=== PATIENT | male | born 1990 | race Caucasian/White ===

== ENCOUNTER 2023-01-21 15:51 | Outpatient (OUT) | payer BC, SELFPAY ==
--- NOTE | 2023-01-21 15:59 | US_ITS ---
The [address] [address] Patient Name: TANGELA MORILLO MRN: [id number] date: 1990 Sex: M Assigned Patient Location: Current Patient Location: Accession/Order Number: [id number] Exam Date: 01/21/2023 16:40 Report Date: 01/22/2023 12:20 At the request of: JAQUI GARVIN Procedure: US scrotum EXAMINATION: US scrotum HISTORY: Testicular Pain N50.819 , right testicular pain and swelling for one month COMPARISON: No relevant comparison available. TECHNIQUE: High-resolution sonographic imaging of the scrotum and contents was performed. FINDINGS: RIGHT: TESTICLE: Homogeneous echotexture. No visible mass. Color Doppler flow is present. Spectral Doppler demonstrates normal arterial waveform and flow, 4/2 cm/s (PSV/EDV), and normal venous wave flow averaging 1 cm/s. EPIDIDYMIS: Normal size and echogenicity. OTHER: Slightly complex hydrocele. Abnormal skin thickening, 7 mm. LEFT: TESTICLE: Homogeneous echotexture. No visible mass. Color Doppler flow is present. Spectral Doppler demonstrates arterial waveform and flow, 4/2 cm/s (PSV/EDV), and normal venous flow averaging 1 cm/s. EPIDIDYMIS: Normal size and echogenicity. OTHER: None. US/US scrotum IMPRESSION: 1. Large right hydrocele of uncertain etiology. 2. Abnormal scrotal skin thickening on right side of uncertain etiology. 3. No increased vascularity of the testicle or epididymis to suggest epididymitis or orchitis. Electronically authenticated by: VENKAT DE LA ROSA Date: 01/22/2023 12:20
== END 2023-01-21 15:52 | disposition home or self-care (01) ==
LOC: US 15:55
PROVIDERS: PCP Nurse Practitioner; Visit Provider Nurse Practitioner
DX: N50.819 Testicular pain, unspecified (principal); N50.89 Other specified disorders of the male genital organs; N43.3 Hydrocele, unspecified
CPT/HCPCS: 76870

== ENCOUNTER 2023-03-18 13:36 | Outpatient (OUT) | payer BC, SELFPAY ==
--- OUTSIDE RECORDS SUMMARY | 2023-03-18 13:40 | XMS_ITS | CCD ---
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 Name Role Phone FAROOQ ., DR ALISON Grace Primary Care Unavailable MARKER ., DR WEINER Admitting Unavailable MARKER ., DR WEINER Attending Unavailable MARKER ., DR WEINER Consulting Unavailable PAULY ., FLEX Consulting Unavailable FAROOQ ., DR ALISON Grace Admitting Unavailable FAROOQ ., DR ALISON Grace Attending Unavailable FAROOQ ., DR ALISON Grace Primary Care Unavailable FAROOQ ., DR ALISON Grace Admitting Unavailable FAROOQ ., DR ALISON Grace Attending Unavailable FAROOQ ., DR ALISON Grace Primary Care Unavailable FAROOQ ., DR ALISON Grace Consulting Unavailable FAROOQ ., DR ALISON Grace Primary Care Unavailable DIAB ., CL[place] Admitting Unavailable DIAB ., [place] Attending Unavailable PADMINI HARVEY Consulting Unavailable DIAB ., [place] Consulting Unavailable FAROOQ ., DR ALISON Grace Primary Care Unavailable DOV SPRING Admitting Unavailable DOV SPRING Attending Unavailable DOV SPRING Consulting Unavailable FAROOQ ., DR ALISON Grace Primary Care Unavailable DIAB ., [place] Admitting Unavailable DIAB ., [place] Attending Unavailable GRECHNY .TIARA Consulting Unavailabl e DIAB ., [place] Consulting Unavailable Sonia Weiss Attending UnavailSonia Harp Admitting Unavailhelena e Alison Farooq Primary Care Unavailable Vianey Lynn Primary Care Physician [phone] Vianey Lynn Attending Unavailable Vianey Lynn Admitting Unavailable My Colon Attending Unavailable My Colon Admitting Unavailable My Colon Attending Unavailable Vianey Lynn Referring Unavailable My Colon Attending Unavailable Vianey Lynn Attending Unavailable Medications Current Medications Medication Drug Class(es) Dates Sig (Normalized) Sig (Original) bisoprolol fumarate 10 mg / hydroCHLOROthiazide 6.25 mg oral tablet (2 sources) Thiazide Diuretic, beta-Adrenergic Maximino Start: 01-20-2023 take 1 tablet by mouth once daily bisoprolol-hydro chlorothiazide 10 mg-6.25 mg Tab 1 tab(s), Oral, Daily, 90 tab(s), Refill(s) 1, [facility]/pharmacy #[id number], 170.4, cm, 01/20/23 15:13:00 EDT, Height/Length Dosing, 89.7, kg, 01/20/23 15:13:00 EDT, Weight Dosing Start Date: 01/20/23 Status: Ordered omeprazole 40 mg delayed release oral capsule (2 sources) Proton Pump Inhibitor Start: 01-20-2023 take 1 capsule by mouth once daily omeprazole 40 mg Cap-DR 40 mg = 1 cap(s), Oral, Daily, # 90 cap(s), Refills(s) 0, Pharmacy: [facility]/pharmacy #[id number], 170.4, cm, 01/20/23 15:13:00 EDT, Height/Length Dosing, 89.7, kg, 01/20/23 15:13:00 EDT, Weight Dosing Start Date: 01/20/23 Status: Ordered Problems Problem Classification Problem Date Documented Date Episodic/Chronic Essential hypertension (3 sources) Essential (primary) hypertension; Translations: [Essential hypertension] Onset: 04-20-2022 01-20-2023 Chronic Genitourinary symptoms and ill-defined conditions (4 sources) Dysuria; Translations: [Microscopic hematuria] Onset: 02-25-2023 01-20-2023 Episodic Headache; including migraine (4 sources) Headache; including migraine; Translations: [HEADACHE UNSPECIFIED] Onset: 04-14-2022 Hypertension with complications and secondary hypertension (2 sources) Hypertensive urgency; Translations: [HYPERTENSIVE URGENCY] Onset: 04-16-2022 Chronic Other male genital disorders (2 sources) Pain in testicle 01-20-2023 Episodic Other male genital disorders (2 sources) Swelling of testicle 01-20-2023 Episodic Other male genital disorders (1 source) Hydrocele of testis; Translations: [Hydrocele, unspecified] Onset: 02-25-2023 Episodic Other male genital disorders (2 sources) Disorder of male genital organ 01-22-2023 Episodic Other upper respiratory disease (5 sources) Epistaxis; Translations: [EPISTAXIS] Onset: 04-16-2022 Episodic Substance-related disorders (3 sources) Nicotine dependence, cigarettes, uncomplicated; Translations: [Smoker] Onset: 04-16-2022 11-28-2015 Chronic Comment on above: Added secondary to d ocumentation in Social History. Results Test Name Value Interpretation Reference Range Facility [facility] 03-09-2023 Forms [id number] .00TIFF Normal [facility] [place] 02-26-2023 Screens [id number]# 1.00TIFF Normal [facility] Screens [id number]# 1.00TIFF Normal [facility] Ambulatory Visit Summaryon 1 04-27-2022 Ambulatory Visit Summary TANGELA MORILLO :1990 Visit Date:02/25/2023 Ambulatory Visit Instructions Your Diagnosis Hydrocele Microscopic hematuria Tests Performed Urnls Dip Stick Auto w/o Microscopy POC 91577 Your Care Team Attending Physician - My Colon MD Primary Care Physician - Vianey Hernandez Referring Physician - Vianey Hernandez This Is Your Medications List Contact prescribing physician if questions or concerns bisoprolol-hydrochlor othiazide (bisoprolol-hydrochlo rothiazide 10 mg-6.25 mg Tab) omeprazole (omeprazole 40 mg Cap-DR) Procedures Performed Hernia (1993). Discharge Vitals Heart Rate (Peripheral) 75 Blood Pressure 140/96 Height 67 in Height 170.4 cm Weight 197.34 lb Weight 89.7 kg BMI 30.89 What to do next You Need to Schedule the Following Appointments Follow Up with Isaiah LEPE, My Gonzalez, URL, URO When: Where: Medications What How Much When Why Instructions Unchanged bisoprolol-hydrochlor othiazide (bisoprolol-hydrochlo rothiazide 10 mg-6.25 mg Tab) 1 Tablets By Mouth Every day Testicular swelling, right Testicular pain Dysuria BMI 30.0-30.9,adult Vaping nicotine dependence, tobacco product Contact prescribing physician if questions or concerns Unchanged omeprazole (omeprazole 40 mg Cap-DR) 1 Capsules By Mouth Every day Testicular swelling, right Testicular pain Dysuria Essential hypertension BMI 30.0-30.9,adult Vaping nicotine dependence, tobacco product Contact prescribing physician if questions or concerns Test Results Urnls Dip Stick Auto w/o Microscopy POC 42956 (02/25/2023) Bilirubin Urine Dipstick - 1+ Small Blood Urine Dipstick - 1+ Small Glucose Urine Dipstick - Negative Ketones Urine Dipstick - Trace - 5 mg/dl Leukocytes Urine Dipstick - Negative Nitrite Urine Dipstick - Negative Protein Urine Dipstick - 1+ (30 mg/dl) Specific [place] Urine Dipstick - >=1.030 Urine Appearance Urine Dipstick - Clear Urine Color Urine Dipstick - Yellow Urobilinogen Urine Dipstick - Normal 0.2-1 EU/dl pH Urine Dipstick - 5.5 Allergies No Known Allergies Problems Ongoing - Any problem that you are currently receiving treatment for. Dysuria Essential hypertension Hydrocele Hydrocele, right Microscopic hematuria Smoker Testicular pain Testicular swelling, right Patient Survey You may receive a survey via text or e-mail asking about your office visit. Please share your experience with us by completing your survey. We appreciate your feedback and thank you for choosing us for your care. Education Materials Hydrocele, Adult A hydrocele is a collection of fluid in the loose pouch of skin that holds the testicles (scrotum). It can occur in one or both testicles. This may happen because: ? The amount of fluid produced in the scrotum is not absorbed by the rest of the body. ? Fluid from the abdomen fills the scrotum. Normally, the testicles develop in the abdomen and then drop into the scrotum before . The tube that the testicles travel through usually closes after the testicles drop. If the tube does not close, fluid from the abdomen can fill the scrotum. This is not very common in adults. What are the causes? A hydrocele may be caused by: ? An injury to the scrotum. ? An infection. ? Decreased blood flow to the scrotum. ? Twisting of a testicle (testicular torsion). ? A defect. ? A tumor or cancer of the testicle. Sometimes, the cause is not known. What are the signs or symptoms? A hydrocele feels like a water-filled balloon. It may also feel heavy. Other symptoms include: ? Swelling of the scrotum. The swelling may decrease when you lie down. You may also notice more swelling at night than in the morning. This is called a communicating hydrocele, in which the fluid in the scrotum goes back into the abdominal cavity when the position of the scrotum changes. ? Swelling of the groin. ? Mild discomfort in the scrotum. ? Pain. This can develop if the hydrocele was caused by infection or twisting. The larger the hydrocele, the more likely you are to have pain. Swelling may also cause pain. How is this diagnosed? This condition may be diagnosed based on a physical exam and your medical history. You may also have tests, including: ? Imaging tests, such as an ultrasound. ? A transillumination test. This test takes place in a dark room where a light is placed on the skin of the scrotum. Clear liquid will not impede the light and the scrotum will be illuminated. This helps a health care provider distinguish a hydrocele from a tumor. ? Blood or urine tests. How is this treated? Most hydroceles go away on their own. If you have no discomfort or pain, your health care provider may suggest close monitoring of your condition until the condition goes away or symptoms develop. This is called watch and wait or watchful waiting. If treatment is needed, it m (more content not included)... Normal [facility] Insurance Correspondenceon 04-27-2022 Insurance Correspondence [id number] .00TIFF Normal [facility] Patient Educationon 02-26-20 23 Patient Education Urology Hydrocele, Adult A hydrocele is a collection of fluid in the loose pouch of skin that holds the testicles (scrotum). It can occur in one or both testicles. This may happen because: ? The amount of fluid produced in the scrotum is not absorbed by the rest of the body. ? Fluid from the abdomen fills the scrotum. Normally, the testicles develop in the abdomen and then drop into the scrotum before . The tube that the testicles travel through usually closes after the testicles drop. If the tube does not close, fluid from the abdomen can fill the scrotum. This is not very common in adults. What are the causes? A hydrocele may be caused by: ? An injury to the scrotum. ? An infection. ? Decreased blood flow to the scrotum. ? Twisting of a testicle (testicular torsion). ? A defect. ? A tumor or cancer of the testicle. Sometimes, the cause is not known. What are the signs or symptoms? A hydrocele feels like a water-filled balloon. It may also feel heavy. Other symptoms include: ? Swelling of the scrotum. The swelling may decrease when you lie down. You may also notice more swelling at night than in the morning. This is called a communicating hydrocele, in which the fluid in the scrotum goes back into the abdominal cavity when the position of the scrotum changes. ? Swelling of the groin. ? Mild discomfort in the scrotum. ? Pain. This can develop if the hydrocele was caused by infection or twisting. The larger the hydrocele, the more likely you are to have pain. Swelling may also cause pain. How is this diagnosed? This condition may be diagnosed based on a physical exam and your medical history. You may also have tests, including: ? Imaging tests, such as an ultrasound. ? A transillumination test. This test takes place in a dark room where a light is placed on the skin of the scrotum. Clear liquid will not impede the light and the scrotum will be illuminated. This helps a health care provider distinguish a hydrocele from a tumor. ? Blood or urine tests. How is this treated? Most hydroceles go away on their own. If you have no discomfort or pain, your health care provider may suggest close monitoring of your condition until the condition goes away or symptoms develop. This is called watch and wait or watchful waiting. If treatment is needed, it may include: ? Treating an underlying condition. This may include taking an antibiotic medicine to treat an infection. ? Having surgery to stop fluid from collecting in the scrotum. ? Having surgery to drain the fluid. Surgery may include: ? Hydrocelectomy. For this procedure, an incision is made in the scrotum to remove the fluid. ? Needle aspiration. A needle is used to drain fluid. However, the fluid buildup will come back quickly and may lead to an infection of the scrotum. This is rarely done. Follow these instructions at home: Medicines ? Take cidv-fwf-yjgsvlq and prescription medicines only as told by your health care provider. ? If you were prescribed an antibiotic medicine, take it as told by your health care provider. Do not stop taking the antibiotic even if you start to feel better. General instructions ? Watch the hydrocele for any changes. ? Keep all follow-up visits. This is important. Contact a health care provider if: ? You notice any changes in the hydrocele. ? The swelling in your scrotum or groin gets worse. ? The hydrocele becomes red, firm, painful, or tender to the touch. ? You have a fever. Get help right away if you: ? Develop a lot of pain or your pain becomes worse. ? Have chills. ? Have a high fever. Summary ? A hydrocele is a collection of fluid in the loose pouch of skin that holds the testicles (scrotum). ? A hydrocele can cause swelling, discomfort, and pain. ? In adults, the cause of a hydrocele may not be known. However, it is sometimes caused by an infection or the twisting of a testicle. ? Hydroceles often go away on their own. If a hydrocele causes pain, treating the underlying cause may be needed to ease the pain. This information is not intended to replace advice given to you by your health care provider. Make sure you discuss any questions you have with your health care provider. Document Revised: 10/30/2021 Document Reviewed: 10/30/2021 [employer] Patient Education ? 2022 [employer] [facility] Provider Letteron 02-25-2023 Provider Letter February 25, 2023 TANGELA MORILLO [address] [place] [address] [place] [address] : 1990 To Whom It May Concern, Please excuse above patient from work. Date of Illness: From: 03/24/23 To: 03/31/23 May Return to Work On: 04/01/23 Restrictions: _ Comments: _ Sincerely, Dr. My Colon MD [facility] [address] [place] [address], [address] [place] [address] Normal [facility] Urinalysison 02-25-2023 Bacteria LM Ql (Urine sed) TRACE Normal Trace [facility] Comment on above: Performed By: #### 1 [id number] ####[facility] [address] [place] [address] Bilirubin Ql (U) 1+ Abnormal Negative [facility] Comment on above: Performed By: #### 1 [id number] ####[facility] [address] [place] [address] Clarity (U) TURBID Abnormal Clear [facility] Comment on above: Performed By: #### 1 [id number] ####[address] [address] Color (U) YELLOW Normal Yellow [facility] Comment on above: Performed By: #### 1 [id number] ####[facility] [address] [place] [address] Crystals LM Ql (Urine sed) Present Normal [facility] Comment on above: Performed By: #### 1 [id number] ####[facility] [address] [place] [address] Epithelial cells.squamous LM.HPF (Urine sed) [#/Area] 0-2 Normal 0-2 [facility] Comment on above: Performed By: #### 1 [id number] ####[facility] [address] [place] [address] Glucose Test strip (U) [Mass/Vol] Negative Normal Negative [facility] Comment on above: Performed By: #### 1 [id number] ####[facility] [address] [place] [address] Hemoglobin Ql (U) 1+ Abnormal Negative [facility] Comment on above: Performed By: #### 1 [id number] ####[facility] [address] [place] [address] Ketones (U) [Mass/Vol] TRACE Abnormal Negative [facility] Comment on above: Performed By: #### 1 [id number] ####[address] [address] [place].plasma/Lithiu m.RBC (Bld) [Mass ratio] 0-3 Normal 0-3 [facility] Comment on above: Performed By: #### 1 [id number] ####[address] [address] Nitrite Ql (U) Negative Normal Negative [facility] Comment on above: Performed By: #### 1 [id number] ####[place] [id number] pH (U) 5.5 [pH] Invalid Interpretation Code 5.0-9.0 [facility] Comment on above: Performed By: #### 1 [id number] ####[address] [address] Protein (U) [Mass/Vol] TRACE Abnormal Negative [facility] Comment on above: Performed By: #### 1 [id number] ####[place] [id number] Specific gravity (U) [Rel density] >=1.030 Invalid Interpretation Code 1.005-1.030 [facility] Comment on above: Performed By: #### 1 [id number] ####[address] [address] Type of Urine collection method Random Urine Normal [facility] Comment on above: Performed By: #### 1 [id number] ####[address] [address] Urobilinogen Qn (U) 0.2 {Donna'U}/dL Normal 0.0-1.0 [facility] Comment on above: Performed By: #### 1 [id number] ####[address] [address] WBC Auto Ql (U) Negative Normal Negative [facility] Comment on above: Performed By: #### 1 [id number] ####[address] [address] WBC LM.HPF (Urine sed) [#/Area] 0-5 Normal 0-5 [facility] Comment on above: Performed By: #### 1 [id number] ####[facility] [address] [address] Urology Office/Clinic Noteon 02-25-2023 Urology Office/Clinic Note Chief Complaint scrotal swelling HPI Staff 33 year old male new patient 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 Patient states that the swelling just keeps getting larger Dysuria: no Incomplete bladder emptying: no Hematuria: no Frequency: no Urgency: no Nocturia:1x Stream:good stream Leaking: no Post void dripping: no Wearing pads/ Depends: no Urge incontinence: no Stress incontinence: no Incontinence without Sensory Awareness: no Abdominal pain: no Flank pain: no Sexual complaints: no History of Present Illness Tests reviewed: Reviewed UA and scrotal US, external records I have reviewed the previous health record information and history for this patient from external provider. I have reviewed and verified the staff HPI to be accurate for this encounter. There have been no associated fever, chills, flank pain, or blood in the urine. Denies any urinary infections . Review of Systems PHQ Score Initial Depression Screen Score: 0 SCORE ROS - Provider Constitutional: denies weight loss, denies hot flashes. Eyes: denies eye problems. Gastrointestinal: denies nausea, denies vomiting. Cardiovascular: denies chest pain or angina. Integumentary: no dryness Musculoskeletal: denies musculoskeletal symptoms. ENMT: denies otolaryngeal symptoms. Respiratory: no shortness of breath. Heme/Lymph: denies easy bleeding tendency, denies easy bruising tendency. Psychiatric: no confusion, no anxiety. Genitourinary: See HPI. Physical Exam Vitals & Measurements HR: 75(Peripheral) BP: 140/96 HT: 67 in HT: 170.4 cm WT: 89.7 kg WT: 197.34 lb BMI: 30.89 General Appearance: alert, no distress, well nourished, well developed male. Head: normocephalic . Eyes: normal orbit and globe. ENMT: normal examination of external ears. Chest: symmetric chest rise, respirations non labored. Cardiovascular: regular rate and rhythm. Abdomen: soft, non distended, no tenderness, no inguinal hernias palpable, BL inguinal scars present Genitourinary: small-mod right hydrocele extending partially into left hemiscrotum, mildly tender. BL descended testes palpable, nontender, no masses. No scrotal erythema Flank Pain: none. Bladder: nonpalpable. Penis: normal shaft, normal glans, uncircumcised Skin: warm, dry, no bruising. Psychiatric: cooperative, affect appropriate for age, normal judgement, euthymic mood. Assessment/Plan 33 yo male referred by Vianey Lynn for testicular pain, swelling and hydrocele on right side. New to our office. Hx of HTN. Denies diabetes, stroke, or [place]. No blood thinners. IPSS 5 MEGHA 3. Not sexually active. Portions of this record may have been created with voice recognition artificial intelligence software, specifically [employer], [employer] and or [employer]. Substitutions may have occurred due to the inherent limitations of voice recognition and artificial intelligence software. 1. Hydrocele (N43.3: Hydrocele, unspecified) Hx of bilateral inguinal hernia repair when he was 4 years old. Denies hx of undescended testicle. No other surgeries or issues. CC: R testicular pain and swelling started about 2 months ago after he took his son to a children's indoor playground, denies any known trauma. Pt states the swelling keeps getting worse. Does note pain worsens after being on his feet all day. Does not notice when he is relaxing. Scrotal US 01/22/23 large, right sided slightly complex hydrocele. Abnormal skin thickening, 7 mm. PE: complex right sided hydrocele present, no recurrence of hernia noted Discussed possible etiologies and mgmt options including conservative measures, aspiration (high risk of recurrence, low success with complex collections) and right hydrocelectomy. Pt states he wishes to treat hydrocele surgically, declined trial of conservative management given bother and desire for definitive treatment. Plan: -Ibuprofen 600-800mg every 6 hours prn for pain -Scrotal support -Schedule Right hydrocelectomy under general anesthesia. He understood the risks of the procedure to include but not limited to bleeding, pain, infection, injury to surrounding structures, recurrence of hydrocele, hematoma, injury to the testicle, epididymis and spermatic cord structures, persistent pain, loss of testicular function, need for orchiectomy, and the need for further procedures. 2. Microscopic hematuria (R31.29: Other microscopic hematuria) UA today small blood. Denies gross hematuria or hx of UTIs. Current vape user. Only risk factor. States cancer runs in his family, type(s) unknown Asymptomatic microscopic hematuria: > 3 RBCs/HPF in absence of obvious benign cause, such as infection, me (more content not included)... Normal [facility] Comment on above: Result Comment: Elec tronically Signed By: My Colon MD\.br\Date and Time Signed: 02/25/23 12:27 EST\.br\Electronically Co-Signed By: Odessa Sky\.br\Date and Time Co-Signed: 02/25/23 11:15 EST Physician Referralon 023 Physician Referral [id number]# 1.00TIFF [facility] Chlamydia/Gonococcus, NAAon 01-23-2023 C. trachomatis rRNA HERB+probe Ql (Unsp spec) Negative Invalid Interpretation Code Negative [facility] Comment on above: Performed By: #### 1 [id number], [id number] ####[facility] [address] [place] [address] N. gonorrhoeae rRNA HERB+probe Ql (Unsp spec) Negative Invalid Interpretation Code Negative [facility] Comment on above: Result Comment: [facility]f ormed at: =[facility] [address] [place], [place] [id number] MD Essence Lacey Performed By: #### 1 [id number], [id number] ####[facility] [address] [place] [address] RAD - Ultrasound Reporton RAD - Ultrasound Report [id number]#1. 00TIFF Normal [facility] Ambulatory Visit Summaryon 1 Ambulatory Visit Summary TANGELA MORILLO :1990 Visit Date:01/20/2023 Ambulatory Visit Instructions Your Diagnosis Testicular swelling, right Testicular pain BMI 30.0-30.9,adult Vaping nicotine dependence, tobacco product Your Care Team Attending Physician - Vianey Hernandez Primary Care Physician - Vianey Hernandez This Is Your Medications List bisoprolol-hydrochlor othiazide (bisoprolol-hydrochlo rothiazide 5 mg-6.25 mg Tab) Procedures Performed Hernia (1993). Discharge Vitals Blood Pressure 148/110 Height 170.4 cm Height 67 in Weight 89.7 kg Weight 197.34 lb BMI 30.89 Medications What How Much When Instructions Unchanged bisoprolol-hydrochlor othiazide (bisoprolol-hydrochlo rothiazide 5 mg-6.25 mg Tab) 1 Tablets By Mouth Every day Allergies No Known Allergies Problems Ongoing - Any problem that you are currently receiving treatment for. Essential hypertension Smoker Testicular pain Testicular swelling, right Patient Survey You may receive a survey via text or e-mail asking about your office visit. Please share your experience with us by completing your survey. We appreciate your feedback and thank you for choosing us for your care. Normal [facility] Family Medicine Office/Clini c Noteon 01-20-2023 Family Medicine Office/Clinic Note HPI Staff Tangela is a 33 year old male presenting to establish care Establish Care: History: Any previous diagnosis: HTN History of seeing any specialist: When was your last doctors visit: Last provider: Dr Farooq Any recent labs: Mar or Apr 2022 at [facility] Health Maintenance UTD: Acute: Current issues/complaints: needs refill on Bisoprolol-HCTZ Testicle pain: start one month ago right testicle is bigger than the left having sharp pain in right testicle with intermittent radiating pain up into pelvic area History of Present Illness pt presents today to establish. has c/o right testicular swelling and pain. needs BP med refill Review of Systems PHQ Score Initial Depression Screen Score: 0 ROS - Provider Constitutional: no fever, no chills, no sweats, no fatigue Respiratory: no shortness of breath, no cough, no orthopnea, no wheezing. Cardiovascular: no chest pain, no palpitations, no edema. Neurologic: no headache, no dizziness, no numbness, no weakness. : right testicle larger and painful Physical Exam Vitals & Measurements BP: 148/110 HT: 67 in HT: 170.4 cm WT: 89.7 kg WT: 197.34 lb BMI: 30.89 General: alert, no acute distress ENMT: oral mucosa moist, no pharyngeal erythema or exudate Cardiovascular: regular rate and rhythm, normal peripheral perfusion Respiratory: Lungs CTA, respirations non labored Extremities: no deformity, no trauma Neurological: oriented x 4, LOC appropriate for age, CN II-XII intact, motor strength equal & normal bilaterally, speech normal right testicular swelling Assessment/Plan 1. Testicular swelling, right (N50.89: Other specified disorders of the male genital organs) right testicle swollen and painful. u/a and std testing ordered. u/s ordered pt will have that done at [facility] Ordered: bisoprolol-hydrochlor othiazide, 1 tab(s), Oral, Daily, 90 tab(s), Refill(s) 1, [id number], 170.4, cm, 01/20/23 15:13:00 EDT, Height/Length Dosing, 89.7, kg, 01/20/23 15:13:00 EDT, Weight Dosing Chlamydia/Gonococcus, HERB UA With Cult Reflex 2. Testicular pain (N50.819: Testicular pain, unspecified) see above Ordered: bisoprolol-hydrochlor othiazide, 1 tab(s), Oral, Daily, 90 tab(s), Refill(s) 1, [id number], 170.4, cm, 01/20/23 15:13:00 EDT, Height/Length Dosing, 89.7, kg, 01/20/23 15:13:00 EDT, Weight Dosing Chlamydia/Gonococcus, HERB UA With Cult Reflex 3. Dysuria (R30.0: Dysuria) u/a with culture sent Ordered: bisoprolol-hydrochlor othiazide, 1 tab(s), Oral, Daily, 90 tab(s), Refill(s) 1, [id number], 170.4, cm, 01/20/23 15:13:00 EDT, Height/Length Dosing, 89.7, kg, 01/20/23 15:13:00 EDT, Weight Dosing Chlamydia/Gonococcus, HERB UA With Cult Reflex 4. Essential hypertension (I10: Essential (primary) hypertension) BP elevated in office today will increase bisprolol dose to 10mg 5. BMI 30.0-30.9,adult (Z68.30: Body mass index [BMI] 30.0-30.9, adult) BMI education complete Ordered: bisoprolol-hydrochlor othiazide, 1 tab(s), Oral, Daily, 90 tab(s), Refill(s) 1, [id number], 170.4, cm, 01/20/23 15:13:00 EDT, Height/Length Dosing, 89.7, kg, 01/20/23 15:13:00 EDT, Weight Dosing Chlamydia/Gonococcus, HERB UA With Cult Reflex 6. Vaping nicotine dependence, tobacco product (F17.290: Nicotine dependence, other tobacco product, uncomplicated) consider not vaping Ordered: bisoprolol-hydrochlor othiazide, 1 tab(s), Oral, Daily, 90 tab(s), Refill(s) 1, [id number], 170.4, cm, 01/20/23 15:13:00 EDT, Height/Length Dosing, 89.7, kg, 01/20/23 15:13:00 EDT, Weight Dosing Chlamydia/Gonococcus, HERB UA With Cult Reflex Follow-up No qualifying data available Problem List/Past Medical History Ongoing Dysuria Essential hypertension Smoker Testicular pain Testicular swelling, right Historical No qualifying data Procedure/Surgical History Hernia (1994). Medications bisoprolol-hydrochlor othiazide 10 mg-6.25 mg Tab, 1 tab(s), Oral, Daily, 1 refills Allergies No Known Allergies Social History Alcohol - Denies Alcohol Use, 11/28/2015 Substance Abuse - Denies Substance Abuse, 11/28/2015 Tobacco - High Risk, 11/28/2015 Never (less than 100 in lifetime) Tobacco Use:. Current vaping or e-cigarette use Smokeless Tobacco Use:. Cigarettes, Vaping, Ready to change: Yes. Household tobacco concerns: No. Yes, 01/20/2023 Family History Hypertension: Mother and Father. Immunizations Vaccine Date Status diphtheria/pertussis, acel/tetanus adult 11/28/2015 Given Normal [facility] Comment on above: Result Comment: Elec tronically Signed By: Vianey Hernandez\Date and Time Signed: 01/20/23 15:34 EDT Physician Orderon 01-20-2023 Physician Order [id number]# 1.00TIFF Normal [facility] UA With Cult Reflexon 2022 Bacteria LM Ql (Urine sed) TRACE Normal Trace [facility] Comment on above: Performed By: #### 1 [id number], [id number] ####[facility] [address] [place] [address] Bilirubin Ql (U) Negative Normal Negative [facility] Comment on above: Performed By: #### 1 [id number], [id number] ####[facility] [address] [place] [address] Clarity (U) CLEAR Normal Clear [facility] Comment on above: Performed By: #### 1 [id number], [id number] ####[facility] [address] [facility] [place] [address] Color (U) YELLOW Normal Yellow [facility] Comment on above: Performed By: #### 1 [id number], [id number] ####[facility] [address] [facility] [place] [address] Epithelial cells.squamous LM.HPF (Urine sed) [#/Area] 0-2 Normal 0-2 [facility] Comment on above: Performed By: #### 1 [id number], [id number] ####[facility] [address] [facility] [place] [address] Glucose Test strip (U) [Mass/Vol] Negative Normal Negative [facility] Comment on above: Performed By: #### 1 [id number], [id number] ####[facility] [address] [facility] [place] [address] Hemoglobin Ql (U) TRACE Abnormal Negative [facility] Comment on above: Performed By: #### 1 [id number], [id number] ####[facility] [address] [place] [address] Ketones (U) [Mass/Vol] Negative Normal Negative [facility] Comment on above: Performed By: #### 1 [id number], [id number] ####[facility] [address] [place] [address] [place].plasma/Lithiu m.RBC (Bld) [Mass ratio] 0-3 Normal 0-3 [facility] Comment on above: Performed By: #### 1 [id number], [id number] ####[address] [address] Mucus Ql (Urine sed) 1+ Normal [facility] Comment on above: Performed By: #### 1 [id number], [id number] ####[address] [address] Nitrite Ql (U) Negative Normal Negative [facility] Comment on above: Performed By: #### 1 [id number], [id number] ####[address] [address] pH (U) 6.0 [pH] Invalid Interpretation Code 5.0-9.0 [facility] Comment on above: Performed By: #### 1 [id number], [id number] ####[address] [address] Protein (U) [Mass/Vol] Negative Normal Negative [facility] Comment on above: Performed By: #### 1 [id number], [id number] ####[address] [address] Specific gravity (U) [Rel density] 1.020 Invalid Interpretation Code 1.005-1.030 [facility] Comment on above: Performed By: #### 1 [id number], [id number] ####[address] [address] Type of Urine collection method Clean Catch Normal [facility] Comment on above: Performed By: #### 1 [id number], [id number] ####[facility] [address] [place] [address] Urobilinogen Qn (U) 0.2 {Donna'U}/dL Normal 0.0-1.0 [facility] Comment on above: Performed By: #### 1 [id number], [id number] ####[facility] [address] [place] [address] WBC Auto Ql (U) Negative Normal Negative [facility] Comment on above: Performed By: #### 1 [id number], [id number] ####[facility] [address] [place] [address] WBC LM.HPF (Urine sed) [#/Area] 0-5 Normal 0-5 [facility] Comment on above: Performed By: #### 1 [id number], [id number] ####[facility] [address] [place] [address] URINALYSISOrdered By: Ibeth Ybarra on 01-20-2023 Bacteria LM Ql (Urine sed) Trace /HPF Normal Trace/HPF [facility] UA Auto SS Bilirubin Ql (U) Negative (01/20/23 3:31 PM) Normal Negative [facility] UA Auto SS Clarity (U) Clear (01/20/23 3:31 PM) Normal Clear [facility] UA Auto SS Color (U) Yellow (01/20/23 3:31 PM) Normal Yellow [facility] UA Auto SS Epithelial cells.squamous LM.HPF (Urine sed) [#/Area] 0-2 /HPF Normal 0-2/HPF [facility] UA Aut o SS Glucose Test strip (U) [Mass/Vol] Negative (01/20/23 3:31 PM) Normal Negative [facility] UA Auto SS Hemoglobin Ql (U) Trace *ABN* (01/20/23 3:31 PM) Invalid Interpretation Code Negative [facility] UA Auto SS Ketones (U) [Mass/Vol] Negative (01/20/23 3:31 PM) Normal Negative [facility] UA Auto SS [place].plasma/Lithiu m.RBC (Bld) [Mass ratio] 0-3 /HPF Normal 0-3/HPF [facility] UA Auto SS Mucus Ql (Urine sed) 1+ (01/20/23 3:31 PM) Normal [facility] UA Auto SS Nitrite Ql (U) Negative (01/20/23 3:31 PM) Normal Negative [facility] UA Auto SS pH (U) 6.0 *NA* (01/20/23 3:31 PM) Invalid Interpretation Code 5.0 - 9.0 [facility] UA Auto SS Protein (U) [Mass/Vol] Negative (01/20/23 3:31 PM) Normal Negative [facility] UA Auto SS Specific gravity (U) [Rel density] 1.020 *NA* (01/20/23 3:31 PM) Invalid Interpretation Code 1.005 - 1.030 [facility] UA Auto SS UA Spec Desc Clean Catch (01/20/23 3:31 PM) Normal [facility] UA Auto SS Urobilinogen Qn (U) 0.8905216 {Donna'U}/dL Normal 0.0 - 1.0 EU/dL [facility] UA Auto SS WBC Auto Ql (U) Negative (01/20/23 3:31 PM) Normal Negative [facility] UA Auto SS WBC LM.HPF (Urine sed) [#/Area] 0-5 /HPF Normal 0-5/HPF [facility] UA Auto SS PROTIMEon 04-18-2022 INR Coag (PPP) [Relative time] 0.94 {INR} Normal [facility] Comment on above: Performed By: #### P T, PTT #### [facility] [address] [place] [address] Dr. Juan Castle INR GUIDELINES SEE BELOW Normal [facility] Comment on above: Result Comment: SIERRA RED INR: 2.0 - 3.0 CONDITIONS NOT LISTED BELOW 2.5 - 3.5 FOR PROSTHETIC HEART VALVE REPLACEMENT 2.5 - 3.5 RECURRENT THROMBOSIS Performed By: #### P T, PTT #### [facility] [address] [address] [address] Juan Castle PT Coag (PPP) [Time] 10.0 s Normal 9.0-11.6 [facility] Comment on above: Performed By: #### P T, PTT #### [facility] [address] [address] [address] Juan Castle PTTon 04-18-2022 aPTT Coag (Bld) [Time] 28.0 s Normal 22.3-36.2 [facility] Comment on above: Performed By: #### P T, PTT #### [facility] [address] [place] [address] Dr. Juan Castle CBC AUTO DIFFon 04-16-2022 BASO # 0.1 103/ul Normal 0.0-0.1 [facility] Comment on above: Performed By: #### C BC #### [facility] [address] [place] [address] Dr. Juan Castle Basophils/100 WBC (Bld) 0.5 % Normal 0.2-2.0 [facility] Comment on above: Performed By: #### C BC #### [facility] [address] [place] [address] Dr. Juan Castle EO # 0.0 103/ul Normal 0.0-0.7 [facility] Comment on above: Performed By: #### C BC #### [facility] [address] [place] [address] Dr. Juan Castle Eosinophils/100 WBC (Bld) 0.2 % Critically low 0.9-7.0 [facility] Comment on above: Performed By: #### C BC #### [facility] [address] [place] [address] Dr. Juan Castle Erythrocyte distribution width (RBC) [Ratio] 12.8 % Normal 11.0-15.0 [facility] Comment on above: Performed By: #### C BC #### [facility] [address] [place] [address] Dr. Juan Castle Hematocrit (Bld) [Volume fraction] 33.2 % Critically low 42.0-54.0 [facility] Comment on above: Performed By: #### C BC #### [facility] [address] [place] [address] Dr. Juan Castle Hemoglobin (Bld) [Mass/Vol] 11.8 g/dL Critically low 14.0-18.0 [facility] Comment on above: Performed By: #### C BC #### [facility] [address] [place] [address] Dr. Juan Castle IG # 0.07 10e3/ul Critically high 0.00-0.03 [facility] Comment on above: Performed By: #### C BC #### [facility] [address] [place] [address] Dr. Juan Castle IG % 0.6 % Critically high 0.0-0.5 [facility] Comment on above: Performed By: #### C BC #### [facility] [address] [place] [address] Dr. Juan Castle LYMPH # 1.5 103/ul Normal 1.2-3.8 [facility] Comment on above: Performed By: #### C BC #### [facility] [address] [place] [address] Dr. Juan Castle Lymphocytes/100 WBC (Bld) 12.1 % Critically low 20.5-60.0 [facility] Comment on above: Performed By: #### C BC #### [facility] [address] [place] [address] Dr. Juan Castle MANUAL DIFF REQ NO Normal [facility] Comment on above: Performed By: #### C BC #### [facility] [address] [place] [address] Dr. Juan Castle MCH (RBC) [Entitic mass] 30.7 pg Normal 25.9-34.0 [facility] Comment on above: Performed By: #### C BC #### [facility] [address] [place] [address] Dr. Juan Castle MCHC (RBC) [Mass/Vol] 35.5 g/dL Critically high 29.9-35.2 [facility] Comment on above: Performed By: #### C BC #### [facility] [address] [place] [address] Dr. Juan Castle MCV (RBC) [Entitic vol] 86.5 fL Normal 80.0-94.0 [facility] Comment on above: Performed By: #### C BC #### [facility] [address] [place] [address] Dr. Juan Castle MONO # 0.6 103/ul Normal 0.3-0.8 [facility] Comment on above: Performed By: #### C BC #### [facility] [address] [place] [address] Dr. Juan Castle Monocytes/100 WBC (Bld) 5.2 % Normal 1.7-12.0 [facility] Comment on above: Performed By: #### C BC #### [facility] [address] [place] [address] Dr. Juan Castle NEUT # 10.1 103/ul Critically high 1.4-6.5 [facility] Comment on above: Performed By: #### C BC #### [facility] [address] [place] [address] Dr. Juan Castle Neutrophils/100 WBC (Bld) 81.4 % Critically high 43.0-75.0 [facility] Comment on above: Performed By: #### C BC #### [facility] [address] [place] [address] Dr. Juan Castle Platelet mean volume (Bld) [Entitic vol] 8.5 fL Critically low 9.5-13.5 [facility] Comment on above: Performed By: #### C BC #### [facility] [address] [place] [address] Dr. Juan Castle PLT 247 103/ul Normal 150-450 [facility] Comment on above: Performed By: #### C BC #### [facility] [address] [place] [address] Dr. Juan Castle RBC 3.84 106/ul Critically low 4.70-6.10 [facility] Comment on above: Performed By: #### C BC #### [facility] [address] [place] [address] Dr. Juan Castle WBC 12.4 103/ul Critically high 4.0-11.[address] [facility] Comment on above: Performed By: #### C BC #### [facility] [address] [place] [address] Dr. Juan Castle LACTATE/LACTIC ACIDon 2022 Lactate [Moles/Vol] 1.1 mmol/L Normal 0.4-1.9 [facility] Comment on above: Performed By: #### L ACT #### [facility] [address] [place] [address] Dr. Juan Castle PROF 14(COMP METB)on 023 Albumin [Mass/Vol] 3.9 g/dL Normal 3.4-5.0 [facility] Comment on above: Performed By: #### C MP #### [facility] [address] [place] [address] Dr. Juan Castle Albumin/Globulin [Mass ratio] 1.1 {ratio} Normal [facility] Comment on above: Performed By: #### C MP #### [facility] [address] [place] [address] Dr. Juan Castle ALP [Catalytic activity/Vol] 60 U/L Normal 46-116 [facility] Comment on above: Performed By: #### C MP #### [facility] [address] [place] [address] Dr. Juan Castle ALT [Catalytic activity/Vol] 24 U/L Normal 16-63 [facility] Comment on above: Performed By: #### C MP #### [facility] [address] [place] [address] Dr. Juan Castle Anion gap [Moles/Vol] 11.2 mmol/L Normal [facility] Comment on above: Performed By: #### C MP #### [facility] [address] [place] [address] Dr. Juan Castle AST [Catalytic activity/Vol] 14 U/L Critically low 15-37 [facility] Comment on above: Performed By: #### C MP #### [facility] [address] [place] [address] Dr. Juan Castle Bilirubin [Mass/Vol] 0.5 mg/dL Normal 0.2-1.0 [facility] Comment on above: Performed By: #### C MP #### [facility] [address] [place] [address] Dr. Juan Castle Calcium [Mass/Vol] 9.5 mg/dL Normal 8.5-10.1 [facility] Comment on above: Performed By: #### C MP #### [facility] [address] [place] [address] Dr. Juan Castle Chloride [Moles/Vol] 102 mmol/L Normal 98-107 [facility] Comment on above: Performed By: #### C MP #### [facility] [address] [place] [address] Dr. Juan Castle CO2 [Moles/Vol] 30.3 mmol/L Normal 21.0-32.[address] [facility] Comment on above: Performed By: #### C MP #### [facility] [address] [place] [address] Dr. Juan Castle Creatinine [Mass/Vol] 0.88 mg/dL Normal 0.70-1.30 [facility] Comment on above: Performed By: #### C MP #### [facility] [address] [place] [address] Dr. Juan Castle EGFR-AF CROATIAN >60 Normal >=[address] [facility] Comment on above: Performed By: #### C MP #### [facility] [address] [place] [address] Dr. Juan Castle EGFR-NON AF CROATIAN >60 Normal >=60 [facility] Comment on above: Performed By: #### C MP #### [facility] [address] [place] [address] Dr. Juan Castle Globulin (S) [Mass/Vol] 3.4 g/dL Normal [facility] Comment on above: Performed By: #### C MP #### [facility] [address] [place] [address] Dr. Juan Castle Glucose [Mass/Vol] 102 mg/dL Normal 74-106 [facility] Comment on above: Performed By: #### C MP #### [facility] [address] [place] [address] Dr. Juan Castle Potassium [Moles/Vol] 3.5 mmol/L Normal 3.5-5.1 [facility] Comment on above: Performed By: #### C MP #### [facility] [address] [address] [address] Juan Castle Protein [Mass/Vol] 7.3 g/dL Normal 6.4-8.2 [facility] Comment on above: Performed By: #### C MP #### [facility] [address] [address] [address] Juan Castle Sodium [Moles/Vol] 140 mmol/L Normal 136-145 [facility] Comment on above: Performed By: #### C MP #### [facility] [address] [address] [address] Juan Castle Urea nitrogen [Mass/Vol] 26.0 mg/dL Critically high 7.0-18.0 [facility] Comment on above: Performed By: #### C MP #### [facility] [address] [place] [address] Dr. Juan Castle Urea nitrogen/Creatinine [Mass ratio] 29.5 mg/mg Normal [facility] Comment on above: Performed By: #### C MP #### [facility] [address] [place] [address] Dr. Juan Castle TYPE AND SCREENon 04-16-2022 TYPE AND SCREEN Negative Normal [facility] Comment on above: Performed By: #### T NS #### [facility] [address] [place] [address] Dr. Juan Castle CBC AUTO DIFFon 04-14-2022 BASO # 0.1 103/ul Normal 0.0-0.1 [facility] Comment on above: Performed By: #### C BC #### [facility] [address] [place] [address] Dr. Juan Castle Basophils/100 WBC (Bld) 0.7 % Normal 0.2-2.0 [facility] Comment on above: Performed By: #### C BC #### [facility] [address] [place] [address] Dr. Juan Castle EO # 0.2 103/ul Normal 0.0-0.7 [facility] Comment on above: Performed By: #### C BC #### [facility] [address] [place] [address] Dr. Juan Castle Eosinophils/100 WBC (Bld) 1.7 % Normal 0.9-7.0 [facility] Comment on above: Performed By: #### C BC #### [facility] [address] [place] [address] Dr. Juan Castle Erythrocyte distribution width (RBC) [Ratio] 13.1 % Normal 11.0-15.0 [facility] Comment on above: Performed By: #### C BC #### [facility] [address] [place] [address] Dr. Juan Castle Hematocrit (Bld) [Volume fraction] 42.0 % Normal 42.0-54.0 [facility] Comment on above: Performed By: #### C BC #### [facility] [address] [place] [address] Dr. Juan Castle Hemoglobin (Bld) [Mass/Vol] 14.6 g/dL Normal 14.0-18.0 [facility] Comment on above: Performed By: #### C BC #### [facility] [address] [place] [address] Dr. Juan Castle IG # 0.06 10e3/ul Critically high 0.00-0.03 [facility] Comment on above: Performed By: #### C BC #### [facility] [address] [place] [address] Dr. Juan Castle IG % 0.7 % Critically high 0.0-0.5 [facility] Comment on above: Performed By: #### C BC #### [facility] [address] [place] [address] Dr. Juan Castle LYMPH # 2.6 103/ul Normal 1.2-3.8 [facility] Comment on above: Performed By: #### C BC #### [facility] [facility] [address] [place] [address] Dr. Juan Castle Lymphocytes/100 WBC (Bld) 29.6 % Normal 20.5-60.0 [facility] Comment on above: Performed By: #### C BC #### [facility] [address] [place] [address] Dr. Juan Castle MANUAL DIFF REQ NO Normal [facility] Comment on above: Performed By: #### C BC #### [facility] [address] [place] [address] Dr. Jaun Castle MCH (RBC) [Entitic mass] 30.2 pg Normal 25.9-34.0 [facility] Comment on above: Performed By: #### C BC #### [facility] [address] [place] [address] Dr. Juan Castle MCHC (RBC) [Mass/Vol] 34.8 g/dL Normal 29.9-35.2 [facility] Comment on above: Performed By: #### C BC #### [facility] [address] [place] [address] Dr. Juan Castle MCV (RBC) [Entitic vol] 87.0 fL Normal 80.0-94.0 [facility] Comment on above: Performed By: #### C BC #### [facility] [address] [place] [address] Dr. Juan Castle MONO # 0.6 103/ul Normal 0.3-0.8 [facility] Comment on above: Performed By: #### C BC #### [facility] [address] [place] [address] Dr. Juan Castle Monocytes/100 WBC (Bld) 6.8 % Normal 1.7-12.0 [facility] Comment on above: Performed By: #### C BC #### [facility] [address] [place] [address] Dr. Juan Castle NEUT # 5.4 103/ul Normal 1.4-6.5 [facility] Comment on above: Performed By: #### C BC #### [facility] [address] [place] [address] Dr. Juan Castle Neutrophils/100 WBC (Bld) 60.5 % Normal 43.0-75.0 [facility] Comment on above: Performed By: #### C BC #### [facility] [address] [address] [address] Juan Castle Platelet mean volume (Bld) [Entitic vol] 9.2 fL Critically low 9.5-13.5 [facility] Comment on above: Performed By: #### C BC #### [facility] [address] [place], [place] [address] Dr. Juan Castle PLT 217 103/ul Normal 150-450 [facility] Comment on above: Performed By: #### C BC #### [facility] [address] [address] [address] Juan Castle RBC 4.83 106/ul Normal 4.70-6.10 [facility] Comment on above: Performed By: #### C BC #### [facility] [address] [address] [address] Juan Castle WBC 8.9 103/ul Normal 4.0-11.0 [facility] Comment on above: Performed By: #### C BC #### [facility] [address] [address] HEAD WO CONon 04-14-2022 CT HEAD WO CON EXAMINATION: CT HEAD WO CON HISTORY: HEADACHE nausea COMPARISON: None. TECHNIQUE: CT head without IV contrast. Coronal and sagittal reformations were performed. Dose reduction techniques were achieved by using automated exposure control and/or adjustment of mA and/or kV according to patient size and/or use of iterative reconstruction technique. FINDINGS: The lateral ventricles are normal size, shape and position. The third and fourth ventricles are midline. Leggett-white differentiation is normal. A mass is not identified. No intracranial hemorrhage is detected. Cortical sulci are normal and are symmetrical side to side. A fracture or cortical irregularity is not identified. There is mild mucoperiosteal thickening within several right posterior ethmoid air cells. The mastoid air cells are normally pneumatized. IMPRESSION: 1. Unremarkable unenhanced head CT. Electronically authenticated by: PADMINI HARVEY Date: 2022-04-14 17:32 Normal [facility] PROF CHEM 8 (BAS METB)on Anion gap [Moles/Vol] 11.1 mmol/L Normal [facility] Comment on above: Performed By: #### H STROPN, BMP #### [facility] [address] [address] [address] Juan Castle Calcium [Mass/Vol] 9.4 mg/dL Normal 8.5-10.1 [facility] Comment on above: Performed By: #### H STROPN, BMP #### [facility] [address] [address] [address] Juan Castle Chloride [Moles/Vol] 100 mmol/L Normal 98-107 [facility] Comment on above: Performed By: #### H STROPN, BMP #### [facility] [address] [address] [address] Juan Castle CO2 [Moles/Vol] 31.4 mmol/L Normal 21.0-32.0 [facility] Comment on above: Performed By: #### H STROPN, BMP #### [facility] [address] [address] [address] Juan Castle Creatinine [Mass/Vol] 0.89 mg/dL Normal 0.70-1.30 [facility] Comment on above: Performed By: #### H STROPN, BMP #### [facility] [address] [address] [address] Juan Castle EGFR-AF CROATIAN >60 Normal >=60 [facility] Comment on above: Performed By: #### H STROPN, BMP #### [facility] [address] [address] [address] Juan Castle EGFR-NON AF CROATIAN >60 Normal >=60 [facility] Comment on above: Performed By: #### H STROPN, BMP #### [facility] [address] [address] [address] Juan Castle Glucose [Mass/Vol] 101 mg/dL Normal 74-106 [facility] Comment on above: Performed By: #### H STROPN, BMP #### [facility] [address] [address] [address] Juan Castle Potassium [Moles/Vol] 4.5 mmol/L Normal 3.5-5.1 [facility] Comment on above: Performed By: #### H STROPN, BMP #### [facility] [address] [address] [address] Juan Castle Sodium [Moles/Vol] 138 mmol/L Normal 136-145 [facility] Comment on above: Performed By: #### H STROPN, BMP #### [facility] [address] [address] [address] Juan Castle Urea nitrogen [Mass/Vol] 12.0 mg/dL Normal 7.0-18.0 [facility] Comment on above: Performed By: #### H STROPN, BMP #### [facility] [address] [address] [address] Juan Castle Urea nitrogen/Creatinine [Mass ratio] 13.5 mg/mg Normal [facility] Comment on above: Performed By: #### H STROPN, BMP #### [facility] [address] [address] [address] Juan Castle TROPONIN, HIGH SENSITIVITYon 04-14-2022 HSTROP 5.5 pg/mL Normal 4.0-76.1 [facility] Comment on above: Result Comment: CUT- OFF POINTS HAVE BEEN ESTABLISHED BASED ON THE FOURTH UNIVERSAL DEFINITIONS OF MYOCARDIAL INFARCTION. THE UPPER REFERENCE LIMIT (URL) OF TROPONIN, DEFINED THE 99TH PERCENTILE OF cTnI DISTRIBUTION IN A REFERENCE POPULATION, HAS BEEN CONFIRMED THE DECISION THRESHOLD FOR [place] DIAGNOSIS. Performed By: #### H STROPN, BMP #### [facility] [address] [address] [address] Juan Castle Vital Signs Date Time Vital Sign Value Performing Clinician Amol rivera 02-25-2023 10:45-0500 Diastolic blood pressure 96 mm[Hg] My L[facility] 02-25-2023 10:45-0500 Mean blood pressure 111 mm[Hg] My Lue [facility] 02-25-2023 10:45-0500 Systolic blood pressure 140 mm[Hg] My Lue [facility] 02-25-2023 10:22-0500 Blood Pressure Location My Lue [facility] 02-25-2023 10:22-0500 Diastolic blood pressure 96 mm[Hg] My Lue [facility] 02-25-2023 10:22-0500 Heart rate 75 /min My Lue [facility] 02-25-2023 10:22-0500 Systolic blood pressure 144 mm[Hg] My Lue [facility] Encounters Encounter Date Encounter Type Care Provider Facility Start: 03-24-2023 ambulatory My M. Lue Facility:C [id number] Start: 02-25-2023 ambulatory Vianey Shane Facility:[facility] [place] Start: 02-25-2023 End: 02-26-2023 ambulatory My M. Lue Facility:[facility] Start: 02-25-2023 End: 02-26-2023 ambulatory My M. Lue Facility:[facility] [place] Start: 02-25-2023 End: 02-25-2023 Patient encounter procedure My M. Lue [facility] Start: 01-28-2023 ambulatory Vianey Shane Facility:[facility] Start: 01-20-2023 End: 01-21-2023 ambulatory Vianey L Shane Facility:[facility] Start: 01-20-2023 End: 01-20-2023 Lab Drop off Vianey L Shane [facility] Start: 01-20-2023 End: 01-21-2023 ambulatory Vianey L Shane Facility[facility] Start: 08-04-2022 ambulatory Sonia Weiss Fa cility:[facility] Start: 07-03-[address] ALISON FAROOQ . Facil ity:[facility] Start: 04-18-2022 End: 04-19-[address] ALISON FAROOQ . Facility:[facility] Start: 04-16-2022 End: 04-16-[address] LAISON FAROOQ . Facility:[facility] Start: 04-15-2022 End: 04-15-[address] ALISON FAROOQ . Facility:[facility] Start: 04-14-2022 End: 04-15-[address] ALISON FAROOQ . Facility:[facility] Start: 04-14-2022 End: 04-14-[address] ALISON FAROOQ . Facility:[facility] Procedures Date Procedure Procedure Detail Performing Clinician Start: 03-29-1993 Herniated structure (morphologic abnormality) Vianey Lynn Immunizations Immunization Date Immunization Notes [facility] tetanus toxoid, redu nery diphtheria toxoid, and acellular pertussis vaccine, adsorbed Vianey Lynn [facility] Payers Date Payer Category Payer Unknown [id number] 2022 Self-pay 1990 Unknown [id number] 2.16.84 [id number] 1990 Unknown [id number] 2.16.84 [id number] 1990 Unknown [id number] 2.16.84 [id number] 1991 Unknown [id number] 2.16.84 [id number] 1991 Unknown [id number] 2.16.84 [id number] 1991 Unknown [id number] 2.16.84 [id number] 1991 Unknown [id number] 2.16.8 [id number] 1991 Unknown [id number] 2.16.8 [id number] 1991 Unknown [id number] 2.16.8 [id number] 1991 Unknown [id number] 2.16.8 [id number] 1958 Medicaid [id number] 1958 Self-pay [id number] Social History Date Type Detail Facility Start: 01-20-2023 End: 02-25-2023 Tobacco smoking status Never smoked tobacco (finding) [facility] Sex Assigned At Male [facility] Functional Status Date Assessment Result Facility 02-25-2023 Functional Status N/A [facility] Discharge instructions 02-25-2023 Note Date & Type Note Facility 02-25-2023 Hospital Discharge instructions Patient Education 02/25/2023 11:06:21 Hydrocele, Adult Hydrocele, Adult A hydrocele is a collection of fluid in the loose pouch of skin that holds the testicles (scrotum). It can occur in one or both testicles. This may happen because: The amount of fluid produced in the scrotum is not absorbed by the rest of the body. Fluid from the abdomen fills the scrotum. Normally, the testicles develop in the abdomen and then drop into the scrotum before . The tube that the testicles travel through usually closes after the testicles drop. If the tube does not close, fluid from the abdomen can fill the scrotum. This is not very common in adults. What are the causes? A hydrocele may be caused by: An injury to the scrotum. An infection. Decreased blood flow to the scrotum. Twisting of a testicle (testicular torsion). A defect. A tumor or cancer of the testicle. Sometimes, the cause is not known. What are the signs or symptoms? A hydrocele feels like a water-filled balloon. It may also feel heavy. Other symptoms include: Swelling of the scrotum. The swelling may decrease when you lie down. You may also notice more swelling at night than in the morning. This is called a communicating hydrocele, in which the fluid in the scrotum goes back into the abdominal cavity when the position of the scrotum changes. Swelling of the groin. Mild discomfort in the scrotum. Pain. This can develop if the hydrocele was caused by infection or twisting. The larger the hydrocele, the more likely you are to have pain. Swelling may also cause pain. How is this diagnosed? This condition may be diagnosed based on a physical exam and your medical history. You may also have tests, including: Imaging tests, such as an ultrasound. A transillumination test. This test takes place in a dark room where a light is placed on the skin of the scrotum. Clear liquid will not impede the light and the scrotum will be illuminated. This helps a health care provider distinguish a hydrocele from a tumor. Blood or urine tests. How is this treated? Most hydroceles go away on their own. If you have no discomfort or pain, your health care provider may suggest close monitoring of your condition until the condition goes away or symptoms develop. This is called watch and wait or watchful waiting. If treatment is needed, it may include: Treating an underlying condition. This may include taking an antibiotic medicine to treat an infection. Having surgery to stop fluid from collecting in the scrotum. Having surgery to drain the fluid. Surgery may include: ?Hydrocelectomy. For this procedure, an incision is made in the scrotum to remove the fluid. ?Needle aspiration. A needle is used to drain fluid. However, the fluid buildup will come back quickly and may lead to an infection of the scrotum. This is rarely done. Follow these instructions at home: Medicines Take uimb-[id number]-[id number] and prescription medicines only as told by your health care provider. If you were prescribed an antibiotic medicine, take it as told by your health care provider. Do not stop taking the antibiotic even if you start to feel better. General instructions Watch the hydrocele for any changes. Keep all follow-up visits. This is important. Contact a health care provider if: You notice any changes in the hydrocele. The swelling in your scrotum or groin gets worse. The hydrocele becomes red, firm, painful, or tender to the touch. You have a fever. Get help right away if you: Develop a lot of pain or your pain becomes worse. Have chills. Have a high fever. Summary A hydrocele is a collection of fluid in the loose pouch of skin that holds the testicles (scrotum). A hydrocele can cause swelling, discomfort, and pain. In adults, the cause of a hydrocele may not be known. However, it is sometimes caused by an infection or the twisting of a testicle. Hydroceles often go away on their own. If a hydrocele causes pain, treating the underlying cause may be needed to ease the pain. This information is not intended to replace advice given to you by your health care provider. Make sure you discuss any questions you have with your health care provider. Document Revised: 10/30/2021 Document Reviewed: 10/30/2021 [employer] Patient Education 2022 [employer]. Follow Up Care 01/28/2023 15:11:24 With:Isaiah LEPE, MARY River, [facility] Address: When: Unknown [facility] Evaluation + Plan note 01-20-2023 Note Date & Type Note Facility 01-20-2023 Evaluation + Plan note Diagnostic Tests PendingChlamydia/Gonococcu s, HERB 01/20/23 [facility] Hospital course Narrative Note Date & Type Note Facility Hospital course Narrative No data available for this section [facility] Hospital Discharge instructions Note Date & Type Note Facility Hospital Discharge instructions No data available for this section [facility] Progress note Note Date & Type Note Facility Progress note No data available for this section [facility] Summary Purpose Family History No Family History Records FoundNo Family History Records Found No data available for this section No data available for this section No Family History Records Found Advance Directives No Advanced Directives Records FoundNo Advanced Directives Records FoundNo Advanced Directives Records Found Additional Source Comments (unrecognized sect ion and content) No Status Records FoundNo Status Records FoundNo Status Records Found INFORMATION SOURCE (unrecogn ized section and content) DATE CREATED AUTHOR 07/04/2022 [facility] DATE CREATED AUTHOR AUTHOR'S ORGANIZ ATION 08/07/2022 [facility] DATE CREATED AUTHOR AUTHOR'S ORGANIZ ATION 03/11/2023 [facility] Patient Care team informatio n (unrecognized section and content) Personnel Name: Vianey Hernandez Address: Address: [address] [place] [address]- Personnel Name: Vianey Hernandez Address: Address: [address] [place] [address]- FOR RECORDS PERTAINING TO PATIENTS WHO ARE OR HAVE BEEN ENROLLED IN A CHEMICAL DEPENDENCY/SUBSTANCEABUSE PROGRAM, SOME INFORMATION MAY BE OMITTED. This clinical summary was aggregated from multiple sources. Caution should be exercised in using it in the provision of clinical care. This summary normalizes information from multiple sources, and as a consequence, information in this document may materially change the coding, format and clinical context of patient data. In addition, data may be omitted in some cases. CLINICAL DECISIONS SHOULD BE BASED ON THE PRIMARY CLINICAL RECORDS. [employer] [facility]. provides no warranty or guarantee of the accuracy or completeness of information in this document.
--- NOTE | 2023-03-18 13:50 | ECG_ITS ---
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
--- NOTE | 2023-03-18 14:04 | XR_ITS ---
[address] [address] Patient Name: TANGELA MORILLO MRN: [id number] date: 1990 Sex: M Assigned Patient Location: [facility] Current Patient Location: [facility] Accession/Order Number: [id number] Exam Date: 03/18/2023 14:15 Report Date: 03/18/2023 14:44 At the request of: RENEE FERGUSON Procedure: XR chest 2V EXAM: XR chest 2V HISTORY: Preop exam COMPARISON: None. TECHNIQUE: PA and lateral views of the chest. FINDINGS: The cardiomediastinal silhouette is normal. No focal consolidation is identified. There is no pneumothorax. No pleural effusion is noted. The osseous structures are intact. XR/XR chest 2V IMPRESSION: No acute cardiopulmonary process. Electronically authenticated by: BRITTANI FRANKLIN Date: 03/18/2023 14:44
[2023-03-18 14:46] LABS: Basophils Absolute Auto 0.1 10^3/uL (0.0-0.1); Basophils Percent Auto 0.9 % (0.2-2.0); Eosinophils Absolute Auto 0.1 10^3/uL (0.0-0.7); Eosinophils Percent Auto 1.5 % (0.9-7.0); Hemoglobin 14.4 g/dL (14.0-18.0); Immature Granulocytes Abs Auto 0.02 10^3/uL (0.00-0.03); Immature Granulocytes Pct Auto 0.3 % (0.0-0.5); Lymphocytes Absolute Auto 2.1 10^3/uL (1.2-3.8); Lymphocytes Percent Auto 26.6 % (20.5-60.0); Mean Corpuscular HGB Conc 34.3 g/dL (29.9-35.2); Mean Corpuscular Hemoglobin 29.3 pg (25.9-34.0); Mean Corpuscular Volume 85.4 fL (80.0-94.0); Mean Platelet Volume 9.2 fL (9.5-13.5); Monocytes Absolute Auto 0.6 10^3/uL (0.3-0.8); Monocytes Percent Auto 7.3 % (1.7-12.0); Neutrophils Absolute Auto 4.9 10^3/uL (1.4-6.5); Neutrophils Percent Auto 63.4 % (43.0-75.0); Platelet Count 283 10^3/uL (150-450); Red Blood Count 4.92 10^6/uL (4.70-6.10); Red Cell Distribution Width 12.4 % (11.0-15.0); White Blood Count 7.8 10^3/uL (4.0-11.0)
[2023-03-18 14:49] LABS: Alanine Aminotransferase 30 U/L (16-63); Albumin Globulin Ratio 1.1; Alkaline Phosphatase 65 U/L (46-116); Anion Gap 11.7; Aspartate Amino Transferase 13 U/L (15-37); BUN Creatinine Ratio 13.3; Bilirubin Total 0.4 mg/dL (0.2-1.0); Calcium 8.9 mg/dL (8.5-10.1); Carbon Dioxide 32.3 mmol/L (21.0-32.0); Chloride 102 mmol/L (98-107); Estimated GFR (African America >60 (>=60); Estimated GFR (Non-African Ame >60 (>=60); Globulin 3.6 g/dL; Glucose 85 mg/dL (74-106); Sodium 142 mmol/L (136-145); Total Protein 7.6 g/dL (6.4-8.2)
== END 2023-03-18 13:37 | disposition home or self-care (01) ==
LOC: PST 13:37
PROVIDERS: PCP Nurse Practitioner; Visit Provider Urology
DX: Z01.810 Encounter for preprocedural cardiovascular examination (principal); Z01.812 Encounter for preprocedural laboratory examination; N43.3 Hydrocele, unspecified
CPT/HCPCS: 71046; 80053; 85025; 93005

== ENCOUNTER 2023-03-24 11:30 | Day surgery (SDC) | payer BC, SELFPAY ==
[2023-03-18 14:09] VITALS: BP 127/87; PULSE 64; RESP 14; TEMP 36.3; O2SAT 99; BMI 30.7
[2023-03-24] VITALS (16 sets, daily range): BP systolic 108–156; BP diastolic 69–95; PULSE 67–80; RESP 3–18; TEMP 36.1–36.2; O2SAT 96–99; BMI 30.8
[2023-03-24] MEDS: CEFAZOLIN SODIUM/DEXTROSE,ISO 2 GM/50 ML PIGGYBACK IV (12:26)
[2023-03-24] MEDS: BUPIVACAINE HCL 0.5% PF 50 MG/10 ML VIAL INJ (12:48)
[2023-03-24] MEDS: LIDOCAINE HCL 1% 100 MG/10 ML MDV INJ (12:49)
[2023-03-24] MEDS: BACITRACIN OINTMENT 28.4 GM TUBE 1 APPLIC TOPICAL (13:28)
[2023-03-24] MEDS: LACTATED RINGER'S SOLUTION 1,000 ML 50 ML IV (13:32)
[2023-03-24] MEDS: HYDROMORPHONE HCL 0.5 MG/0.5 ML SYRINGE IV (13:51)
--- NOTE | 2023-03-24 14:05 | P.URON_ITS ---
Urology Surgery Operative Note Operative Note Procedure Date: 03/24/23 Time Out Performed: yes Pre-op Diagnosis: Right hydrocele Post-op Diagnosis: same as pre-op Procedures performed: Right hydrocelectomy Anesthesia: General-LMA (Dr. Ayers) Primary Surgeon: My Colon Complications: none Estimated blood loss (mL): 1 Findings: Thickened tunica vaginalis with adherent scarring to testicle, mildly complex but no walled off internal septations. Debris and inflammation vs cysts of tunica albuginea, soft, no firm masses. < 100 ml clear yellow hydrocele fluid. Non-communicating hydrocele. No enough tunica to excise and still maintain Jaboulay technique. Specimens: none Drains: none Incision: right hemiscrotum Indications for Procedures: 33 yo male with bothersome right hydrocele x 4 months here who was evaluated in clinic and elected to proceed today for right hydrocelectomy. Scrotal US 01/22/23 shows right large slightly complex hydrocele and abnormal skin thickening. Remote history of right inguinal hernia repair as a child. Risks were discussed including but not limited to bleeding, pain, infection, recurrence, damage to surrounding structures including epididymis, spermatic cord structures and testicular loss/atrophy, need for orchiectomy and need for further procedures. Detailed description of Procedure: PROCEDURE IN DETAIL: After informed consent was obtained, the patient was brought back to the operating room and timeout was performed verifying the patient, the procedure and procedure site. General anesthesia was induced and the patient was placed in??supine position with all pressure points padded appropriately. He was then prepped and draped in a sterile standard fashion for hydrocelectomy using a transverse scrotal incision approximately 4 cm in length. We cut the skin with a 10-blade getting through??dartos tissue with electrocaut drew. We exposed the tunica vaginalis of the hydrocele the tunica vaginalis off dartos tissue. We were able to deliver the hydrocele in its entirety. Using a sweeping motion, we swept off the rest of the dartos tissue until we exposed just the neck of the hydrocele off the cord, we got into the hydrocele sharply and drained the hydrocele fluid. Hydrocele sac was then opened up in its entirety. Tunica vaginalis was then inverted and the free edges were sewed together (jaboulay technique), taking care to ensure neck not too tight on spermatic cord.?? Care was taken then to obtain adequate hemostasis throughout the inside of the scrotum and along the edges of the cut dartos. A significant amount of time was spent making sure that we achieved adequate hemostasis. We then placed the testicle back into the scrotum in its normal anatomical position. The dartos layer was then closed using a 3-0 vicryl suture in a running fashion. We then closed the skin with a 4-0 Monocryl suture running horizontal mattress fashion. Bacitracin, Telfa, fluffs and scrotal support applied. This concluded our case. The patient was awakened from anesthesia and transported to PACU in stable condition.? ? Other Provider present: No
--- NOTE | 2023-03-24 14:38 | PC.NURSE ---
Patient urinated large amount yellow urine
== END 2023-03-24 14:52 | disposition home or self-care (01) ==
PROVIDERS: PCP Nurse Practitioner; Visit Provider Urology
PROC: (CPT 920; principal; 2023-03-24 12:30)
DX: N43.3 Hydrocele, unspecified (principal); I10 Essential (primary) hypertension; R35.1 Nocturia; F17.290 Nicotine dependence, other tobacco product, uncomplicated; R31.29 Other microscopic hematuria
CPT/HCPCS: 55040; 36415; J1170; J2704

== ENCOUNTER 2024-06-12 12:10 | Emergency (ER) | payer BC, SELFPAY ==
[2024-06-12 12:29] VITALS: BP 132/84; PULSE 70; TEMP 36.7; O2SAT 98; BMI 31.3
--- OUTSIDE RECORDS SUMMARY | 2024-06-12 12:40 | XMS_ITS | CCD ---
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 Name Role Phone FRITZ ., DR ALISON Grace Primary Care Unavailable MARKER ., DR WEINER Admitting Unavailable MARKER ., DR WEINER Attending Unavailable MARKER ., DR WEINER Consulting Unavailable PAULY ., FLEX Consulting Unavailable HU ., DR ALISON Grace Admitting Unavailable HU ., DR ALISON Grace Attending Unavailable HU ., DR ALISON Grace Primary Care Unavailable HU ., DR ALISON Grace Admitting Unavailable HU ., DR ALISON Grace Attending Unavailable HU ., DR ALISON Grace Primary Care Unavailable HU ., DR ALISON Grace Consulting Unavailable HU ., DR ALISON Grace Primary Care Unavailable DIAB ., [place] Admitting Unavailable DIAB ., [place] Attending Unavailable PADMINI HARVEY Consulting Unavailable DIAB ., [place] Consulting Unavailable HU ., DR ALISON Grace Primary Care Unavailable DOV SPRING Admitting Unavailable DOV SPRING Attending Unavailable DOV SPRING Consulting Unavailable HU ., DR ALISON Grace Primary Care Unavailable DIAB ., [place] Admitting Unavailable DIAB ., [place] Attending Unavailable GRECHNY .TIARA Consulting Unavailhelena e DIAB ., [place] Consulting Unavailable Sonia Weiss Attending UnavailSonia Harp Admitting UnavailAlison Levin Primary Care Unavailable Vianey Lynn Primary Care Physician [phone] WILFREDO Lynn Attending Unavailable WLIFREDO Lynn Attending Unavailable Medications Current Medications Medication Drug Class(es) Dates Sig (Normalized) Sig (Original) bisoprolol fumarate 10 mg / hydroCHLOROthiazide 6.25 mg oral tablet (3 sources) Thiazide Diuretic, beta-Adrenergic Maximino Start: 01-20-2023 take 1 tablet by mouth once daily bisoprolol-hydro chlorothiazide 10 mg-6.25 mg Tab 1 tab(s), Oral, Daily, 90 tab(s), Refill(s) 1, [facility]/pharmacy #[id number], 170.4, cm, 01/20/23 15:13:00 EDT, Height/Length Dosing, 89.7, kg, 01/20/23 15:13:00 EDT, Weight Dosing Start Date: 01/20/23 Status: Ordered omeprazole 40 mg delayed release oral capsule (3 sources) Proton Pump Inhibitor Start: 01-20-2023 take 1 capsule by mouth once daily omeprazole 40 mg Cap-DR 40 mg = 1 cap(s), Oral, Daily, # 90 cap(s), Refills(s) 0, Pharmacy: [facility]/pharmacy #[id number], 170.4, cm, 01/20/23 15:13:00 EDT, Height/Length Dosing, 89.7, kg, 01/20/23 15:13:00 EDT, Weight Dosing Start Date: 01/20/23 Status: Ordered Problems Problem Classification Problem Date Documented Date Episodic/Chronic Essential hypertension (4 sources) Essential (primary) hypertension; Translations: [Essential hypertension] Onset: 04-20-2022 01-20-2023 Chronic Genitourinary symptoms and ill-defined conditions (6 sources) Dysuria; Translations: [Microscopic hematuria] Onset: 02-25-2023 01-20-2023 Episodic Headache; including migraine (4 sources) Headache; including migraine; Translations: [HEADACHE UNSPECIFIED] Onset: 04-14-2022 Hypertension with complications and secondary hypertension (2 sources) Hypertensive urgency; Translations: [HYPERTENSIVE URGENCY] Onset: 04-16-2022 Chronic Other male genital disorders (3 sources) Pain in testicle 01-20-2023 Episodic Other male genital disorders (3 sources) Swelling of testicle 01-20-2023 Episodic Other male genital disorders (2 sources) Hydrocele of testis; Translations: [Hydrocele, unspecified] Onset: 02-25-2023 Episodic Other male genital disorders (4 sources) Disorder of male genital organ 01-22-2023 Episodic Other upper respiratory disease (5 sources) Epistaxis; Translations: [EPISTAXIS] Onset: 04-16-2022 Episodic Substance-related disorders (4 sources) Nicotine dependence, cigarettes, uncomplicated; Translations: [Smoker] Onset: 04-16-2022 11-28-2015 Chronic Comment on above: Added secondary to d ocumentation in Social History. Results Test Name Value Interpretation Reference Range Facility Family Medicine Office/Clini c Noteon 05-17-2024 Family Medicine Office/Clinic Note Family Medicine Office/Clinic Note HPI Staff Tangela is a 34 year old male presenting for Medication refill ELEANOR 01/20/23 increased bisoprolol to 10mg Patient is here for follow up on hypertension. How often are you checking your blood pressure? no What are your average readings? _ Do you have any of the following symptoms? Chest Pain? no Palpitations? no GAVIN/SOB? no Headache? no only when he forgets to take medication Peripheral Edema? no Light Headiness? no Pt does admit on the weekends he doesn't always remember to take his medication. Needs refill on medication Gerd: pt needs refill on omeprazole, it working well for him. History of Present Illness pt presents today for refill on omeprazole Review of Systems PHQ Score Initial Depression Screen Score: 2 SCORE Physical Exam Vitals & Measurements HR: 88(Peripheral) RR: 18 BP: 142/92 SpO2: 99% HT: 67 in HT: 170.0 cm WT: 98.7 kg WT: 217.596 lb BMI: 34.15 General: alert, no acute distress ENMT: oral mucosa moist, no pharyngeal erythema or exudate Cardiovascular: regular rate and rhythm, normal peripheral perfusion Respiratory: Lungs CTA, respirations non labored Extremities: no deformity, no trauma Neurological: oriented x 4, LOC appropriate for age, CN II-XII intact, motor strength equal & normal bilaterally, speech normal Assessment/Plan 1. Essential hypertension (I10: Essential (primary) hypertension) BP slightly elevated but pt admits he doesn't take his medication daily as prescribed. he does not need refills. RTC 6 months 2. Acid reflux (K21.9: Gastro-esophageal reflux disease without esophagitis) pt doing much better with reflux. will send refil 3. BMI 31.0-31.9,adult (Z68.31: Body mass index [BMI] 31.0-31.9, adult) BMI education given 4. Smoker (F17.200: Nicotine dependence, unspecified, uncomplicated) consider not smoking Orders: omeprazole, See Instructions, TAKE 1 CAPSULE BY MOUTH EVERY DAY, # 90 cap(s), Refills(s) 3, Pharmacy: [facility] STORE [id number], 170, cm, 05/17/24 15:39:00 EST, Height/Length Dosing, 98.7, kg, 05/17/24 15:39:00 EST, Weight Dosing Follow-up No qualifying data available Problem List/Past Medical History Ongoing Acid reflux Dysuria Essential hypertension Hydrocele Hydrocele, right Microscopic hematuria Smoker Testicular pain Testicular swelling, right Historical No qualifying data Procedure/Surgical History Right hydrocelectomy (03/24/2023), Hernia (1993). Medications bisoprolol-hydrochlo rothiazide 10 mg-6.25 mg Tab, 1 tab(s), Oral, Daily, 3 refills omeprazole 40 mg Cap-DR, See Instructions, 3 refills omeprazole 40 mg Cap-DR, See Instructions Allergies No Known Allergies Social History Alcohol - Denies Alcohol Use, 11/28/2015 Current. Beer. 1-2 times per month., 05/17/2024 Substance Abuse - Denies Substance Abuse, 11/28/2015 Never., 05/16/2024 Tobacco - High Risk, 11/28/2015 Smoker, current status unknown Tobacco Use:., 05/16/2024 Family History Hypertension: Mother and Father. Immunizations Vaccine Date Status diphtheria/pertussis , acel/tetanus adult 11/28/2015 Given Normal [facility] Comment on above: Result Comment: Elec tronically Signed By: Vianey [email or web address]\Date and Time Signed: 05/17/24 16:12 EST URINALYSISOrdered By: Ibeth Ybarra on 01-20-2023 Bacteria [...] PM) Normal Negative [facility] UA Auto SS [place].plasma/[place] .RBC (Bld) [Mass ratio] 0-3 /HPF Normal 0-3/HPF [...] Desc Clean Catch (01/20/23 3:31 PM) Normal [facility] UA Auto SS Urobilinogen Qn (U) [id number] {Donna'U}/dL Normal 0.0 - 1.0 EU/dL FT UA Auto SS WBC Auto Ql (U) Negative (01/20/23 3:31 PM) Normal Negative [facility] UA Auto SS WBC LM.HPF (Urine sed) [#/Area] 0-5 /HPF Normal 0-5/HPF [facility] UA Auto SS PROTIMEon 04-18-2022 INR Coag (PPP) [Relative time] 0.94 {INR} Normal [facility] Comment on above: Performed By: #### P T, PTT #### [facility] [address] [place] [address] Dr. Juan Castle INR GUIDELINES SEE BELOW Normal [facility] Comment on above: Result Comment: [place] INR: 2.0 - 3.0 CONDITIONS NOT LISTED BELOW 2.5 - 3.5 FOR PROSTHETIC HEART VALVE REPLACEMENT 2.5 - 3.5 RECURRENT THROMBOSIS Performed By: #### P T, PTT #### [facility] [address] [place] [address] Dr. Juan Castle PT Coag (PPP) [Time] 10.0 s Normal 9.0-11.6 [facility] Comment on above: Performed By: #### P T, PTT #### [facility] [address] [place] [address] Dr. Juan Castle PTTon 04-18-2022 aPTT Coag (Bld) [Time] 28.0 s Normal 22.3-36.2 [facility] Comment on above: Performed By: #### P T, PTT #### [facility] [address] [place] [address] Dr. Juan Castle CBC AUTO DIFFon 04-16-2022 BASO # 0.1 103/ul Normal 0.0-0.1 [facility] Comment on above: Performed By: #### C BC #### [facility] [address] [place] [address] Dr. Juan Castle Basophils/100 WBC (Bld) 0.5 % Normal 0.2-2.0 [facility] Comment on above: Performed By: #### C BC #### [facility] [address] [place] [address] Dr. Juan Castle EO # 0.0 103/ul Normal 0.0-0.7 [facility] Comment on above: Performed By: #### C BC #### [facility] [address] [place] [address] Dr. Juan Castle Eosinophils/100 WBC (Bld) 0.2 % Critically low 0.9-7.0 [facility] Comment on above: Performed By: #### C BC #### [facility] [address] [place] [address] Dr. Juan Castle Erythrocyte distribution width (RBC) [Ratio] 12.8 % Normal 11.0-15.0 [facility] Comment on above: Performed By: #### C BC #### [facility] [address] [place] [address] Dr. Juan Castle Hematocrit (Bld) [Volume fraction] 33.2 % Critically low 42.0-54.0 [facility] Comment on above: Performed By: #### C BC #### [facility] [address] [place] [address] Dr. Juan Castle Hemoglobin (Bld) [Mass/Vol] 11.8 g/dL Critically low 14.0-18.0 [facility] Comment on above: Performed By: #### C BC #### [facility] [address] [place] [address] Dr. Juan Castle IG # 0.07 10e3/ul Critically high 0.00-0.03 [facility] Comment on above: Performed By: #### C BC #### [facility] [address] [place] [address] Dr. Juan Castle IG % 0.6 % Critically high 0.0-0.5 [facility] Comment on above: Performed By: #### C BC #### [facility] [address] [place] [address] Dr. Juan Castle LYMPH # 1.5 103/ul Normal 1.2-3.8 [facility] Comment on above: Performed By: #### C BC #### [facility] [address] [place] [address] Dr. Juan Castle Lymphocytes/100 WBC (Bld) 12.1 % Critically low 20.5-60.0 [facility] Comment on above: Performed By: #### C BC #### [facility] [address] [place] [address] Dr. Juan Castle MANUAL DIFF REQ NO Normal [facility] Comment on above: Performed By: #### C BC #### [facility] [address] [place] [address] Dr. Juan Castle MCH (RBC) [Entitic mass] 30.7 pg Normal 25.9-34.0 [facility] Comment on above: Performed By: #### C BC #### [facility] [address] [place] [address] Dr. Juan Castle MCHC (RBC) [Mass/Vol] 35.5 g/dL Critically high 29.9-35.2 [facility] Comment on above: Performed By: #### C BC #### [facility] [address] [address] [address] Juan Castle MCV (RBC) [Entitic vol] 86.5 fL Normal 80.0-94.0 [facility] Comment on above: Performed By: #### C BC #### [facility] [address] [address] [address] Juan Castle MONO # 0.6 103/ul Normal 0.3-0.8 [facility] Comment on above: Performed By: #### C BC #### [facility] [address] [address] [address] Juan Castle Monocytes/100 WBC (Bld) 5.2 % Normal 1.7-12.0 [facility] Comment on above: Performed By: #### C BC #### [facility] [address] [address] [address] Juan Castle NEUT # 10.1 103/ul Critically high 1.4-6.5 [facility] Comment on above: Performed By: #### C BC #### [facility] [address] [place] [address] Dr. Juan Castle Neutrophils/100 WBC (Bld) 81.4 % Critically high 43.0-75.0 [facility] Comment on above: Performed By: #### C BC #### [facility] [address] [address] [address] Juan Castle Platelet mean volume (Bld) [Entitic vol] 8.5 fL Critically low 9.5-13.5 [facility] Comment on above: Performed By: #### C BC #### [facility] [address] [place] [address] Dr. Juan Catsle PLT 247 103/ul Normal 150-450 [facility] Comment on above: Performed By: #### C BC #### [facility] [address] [place] [address] Dr. Juan Castle RBC 3.84 106/ul Critically low 4.70-6.10 [facility] Comment on above: Performed By: #### C BC #### [facility] [address] [address] [address] Juan Castle WBC 12.4 103/ul Critically high 4.0-11.0 [facility] Comment on above: Performed By: #### C BC #### [facility] [address] [address] [address] Juan Castle LACTATE/LACTIC ACIDon 2022 Lactate [Moles/Vol] 1.1 mmol/L Normal 0.4-1.9 [facility] Comment on above: Performed By: #### L ACT #### [facility] [address] [address] [address] Juan Castle PROF 14(COMP METB)on 023 Albumin [Mass/Vol] 3.9 g/dL Normal 3.4-5.0 [facility] Comment on above: Performed By: #### C MP #### [facility] [address] [address] [address] Juan Castle Albumin/Globulin [Mass ratio] 1.1 {ratio} Normal [facility] Comment on above: Performed By: #### C MP #### [facility] [address] [address] [address] Juan Castle ALP [Catalytic activity/Vol] 60 U/L Normal 46-116 [facility] Comment on above: Performed By: #### C MP #### [facility] [address] [address] [address] Juan Castle ALT [Catalytic activity/Vol] 24 U/L Normal 16-63 [facility] Comment on above: Performed By: #### C MP #### [facility] [address] [address] [address] Juan Castle Anion gap [Moles/Vol] 11.2 mmol/L Normal [facility] Comment on above: Performed By: #### C MP #### [facility] [address] [address] [address] Juan Castle AST [Catalytic activity/Vol] 14 U/L Critically low 15-37 [facility] Comment on above: Performed By: #### C MP #### [facility] [address] [address] [address] Juan Castle Bilirubin [Mass/Vol] 0.5 mg/dL Normal 0.2-1.0 [facility] Comment on above: Performed By: #### C MP #### [facility] [address] [address] [address] Juan Castle Calcium [Mass/Vol] 9.5 mg/dL Normal 8.5-10.1 [facility] Comment on above: Performed By: #### C MP #### [facility] [address] [address] [address] Juan Castle Chloride [Moles/Vol] 102 mmol/L Normal 98-107 [facility] Comment on above: Performed By: #### C MP #### [facility] [address] [address] [address] Juan Castle CO2 [Moles/Vol] 30.3 mmol/L Normal 21.0-32.0 [facility] Comment on above: Performed By: #### C MP #### [facility] [address] [address] [address] Juan Castle Creatinine [Mass/Vol] 0.88 mg/dL Normal 0.70-1.30 [facility] Comment on above: Performed By: #### C MP #### [facility] [address] [address] [address] Juan Castle EGFR-AF NAURUAN >60 Normal >=60 [facility] Comment on above: Performed By: #### C MP #### [facility] [address] [address] [address] Juan Castle EGFR-NON AF NAURUAN >60 Normal >=60 [facility] Comment on above: Performed By: #### C MP #### [facility] [address] [place] [address] Dr. Juan Castle Globulin (S) [Mass/Vol] 3.4 g/dL Normal [facility] Comment on above: Performed By: #### C MP #### [facility] [address] [address] [address] Juan Castle Glucose [Mass/Vol] 102 mg/dL Normal 74-106 [facility] Comment on above: Performed By: #### C MP #### [facility] [address] [address] [address] Juan Castle Potassium [Moles/Vol] 3.5 mmol/L Normal 3.5-5.1 [facility] Comment on above: Performed By: #### C MP #### [facility] [address] [address] [address] Juan Castle Protein [Mass/Vol] 7.3 g/dL Normal 6.4-8.2 [facility] Comment on above: Performed By: #### C MP #### [facility] [address] [place] [address] Dr. Juan Castle Sodium [Moles/Vol] 140 mmol/L Normal 136-145 [facility] Comment on above: Performed By: #### C MP #### [facility] [address] [address] [address] Juan Castle Urea nitrogen [Mass/Vol] 26.0 mg/dL Critically high 7.0-18.0 [facility] Comment on above: Performed By: #### C MP #### [facility] [address] [place] [address] Dr. Juan Castle Urea nitrogen/Creatinine [Mass ratio] 29.5 mg/mg Normal [facility] Comment on above: Performed By: #### C MP #### [facility] [address] [address] [address] Juan Castle TYPE AND SCREENon 04-16-2022 TYPE AND SCREEN Negative Normal [facility] Comment on above: Performed By: #### T NS #### [facility] [address] [address] [address] Juan Castle CBC AUTO DIFFon 04-14-2022 BASO # 0.1 103/ul Normal 0.0-0.1 [facility] Comment on above: Performed By: #### C BC #### [facility] [address] [address] [address] Juan Castle Basophils/100 WBC (Bld) 0.7 % Normal 0.2-2.0 [facility] Comment on above: Performed By: #### C BC #### [facility] [address] [address] [address] Juan Castle EO # 0.2 103/ul Normal 0.0-0.7 [facility] Comment on above: Performed By: #### C BC #### [facility] [address] [address] [address] Juan Castle Eosinophils/100 WBC (Bld) 1.7 % Normal 0.9-7.0 [facility] Comment on above: Performed By: #### C BC #### [facility] [address] [place] [address] Dr. Juan Castle Erythrocyte distribution width (RBC) [Ratio] 13.1 % Normal 11.0-15.0 [facility] Comment on above: Performed By: #### C BC #### [facility] [address] [place] [address] Dr. Juan Castle Hematocrit (Bld) [Volume fraction] 42.0 % Normal 42.0-54.0 [facility] Comment on above: Performed By: #### C BC #### [facility] [address] [place] [address] Dr. Juan Castle Hemoglobin (Bld) [Mass/Vol] 14.6 g/dL Normal 14.0-18.0 [facility] Comment on above: Performed By: #### C BC #### [facility] [address] [place] [address] Dr. Juan Castle IG # 0.06 10e3/ul Critically high 0.00-0.03 [facility] Comment on above: Performed By: #### C BC #### [facility] [address] [address] [address] Juan Castle IG % 0.7 % Critically high 0.0-0.5 [facility] Comment on above: Performed By: #### C BC #### [facility] [address] [place] [address] Dr. Juan Castle LYMPH # 2.6 103/ul Normal 1.2-3.8 [facility] Comment on above: Performed By: #### C BC #### [facility] [address] [place] [address] Dr. Juan Castle Lymphocytes/100 WBC (Bld) 29.6 % Normal 20.5-60.0 [facility] Comment on above: Performed By: #### C BC #### [facility] [address] [place] [address] Dr. Juan Castle MANUAL DIFF REQ NO Normal [facility] Comment on above: Performed By: #### C BC #### [facility] [address] [place] [address] Dr. Juan Castle MCH (RBC) [Entitic mass] 30.2 pg Normal 25.9-34.0 [facility] Comment on above: Performed By: #### C BC #### [facility] [address] [place] [address] Dr. Juan Castle MCHC (RBC) [Mass/Vol] 34.8 g/dL Normal 29.9-35.2 [facility] Comment on above: Performed By: #### C BC #### [facility] [address] [place] [address] Dr. Juan Castle MCV (RBC) [Entitic vol] 87.0 fL Normal 80.0-94.0 [facility] Comment on above: Performed By: #### C BC #### [facility] [address] [place] [address] Dr. Juan Castle MONO # 0.6 103/ul Normal 0.3-0.8 [facility] Comment on above: Performed By: #### C BC #### [facility] [address] [place] [address] Dr. Juan Castle Monocytes/100 WBC (Bld) 6.8 % Normal 1.7-12.0 [facility] Comment on above: Performed By: #### C BC #### [facility] [address] [place] [address] Dr. Juan Castle NEUT # 5.4 103/ul Normal 1.4-6.5 [facility] Comment on above: Performed By: #### C BC #### [facility] [address] [place] [address] Dr. Juan Castle Neutrophils/100 WBC (Bld) 60.5 % Normal 43.0-75.0 [facility] Comment on above: Performed By: #### C BC #### [facility] [address] [place] [address] Dr. Juan Castle Platelet mean volume (Bld) [Entitic vol] 9.2 fL Critically low 9.5-13.5 [facility] Comment on above: Performed By: #### C BC #### [facility] [address] [place] [address] Dr. Juan Castle PLT 217 103/ul Normal 150-450 [facility] Comment on above: Performed By: #### C BC #### [facility] [address] [place] [address] Dr. Juan Castle RBC 4.83 106/ul Normal 4.70-6.10 [facility] Comment on above: Performed By: #### C BC #### [facility] [address] [place] [address] Dr. Juan Castle WBC 8.9 103/ul Normal 4.0-11.0 [facility] Comment on above: Performed By: #### C BC #### [facility] [address] [place] [address] HEAD WO CONon [...] PADMINI HARVEY Date: 2022-04-14 17:32 Normal The [facility] PROF CHEM 8 (BAS METB)on Anion gap [Moles/Vol] 11.1 mmol/L Normal [facility] Comment on above: Performed By: #### H STROPN, BMP #### [facility] [address] [place] [address] Dr. Juan Castle Calcium [Mass/Vol] 9.4 mg/dL Normal 8.5-10.1 [facility] Comment on above: Performed By: #### H STROPN, BMP #### [facility] [address] [place] [address] Dr. Juan Castle Chloride [Moles/Vol] 100 mmol/L Normal 98-107 [facility] Comment on above: Performed By: #### H STROPN, BMP #### [facility] [address] [place] [address] Dr. Juan Castle CO2 [Moles/Vol] 31.4 mmol/L Normal 21.0-32.0 [facility] Comment on above: Performed By: #### H STROPN, BMP #### [facility] [address] [place] [address] Dr. Juan Castle Creatinine [Mass/Vol] 0.89 mg/dL Normal 0.70-1.30 [facility] Comment on above: Performed By: #### H STROPN, BMP #### [facility] [address] [place] [address] Dr. Juan Castle EGFR-AF NAURUAN >60 Normal >=60 [facility] Comment on above: Performed By: #### H STROPN, BMP #### [facility] [address] [place] [address] Dr. Juan Castle EGFR-NON AF NAURUAN >60 Normal >=60 [facility] Comment on above: Performed By: #### H STROPN, BMP #### [facility] [address] [address] [address] Juan Castle Glucose [Mass/Vol] 101 mg/dL Normal 74-106 [facility] Comment on above: Performed By: #### H STROPN, BMP #### [facility] [address] [address] [address] Juan Castle Potassium [Moles/Vol] 4.5 mmol/L Normal 3.5-5.1 [facility] Comment on above: Performed By: #### H STROPN, BMP #### [facility] [address] [address] [address] Juan Castle Sodium [Moles/Vol] 138 mmol/L Normal 136-145 [facility] Comment on above: Performed By: #### H STROPN, BMP #### [facility] [address] [place] [address] Dr. Juan Castle Urea nitrogen [Mass/Vol] 12.0 mg/dL Normal 7.0-18.0 [facility] Comment on above: Performed By: #### H STROPN, BMP #### [facility] [address] [address] [address] Juan Castle Urea nitrogen/Creatinine [Mass ratio] 13.5 mg/mg Normal [facility] Comment on above: Performed By: #### H STROPN, BMP #### [facility] [address] [place] [address] Dr. Juan Castle TROPONIN, HIGH SENSITIVITYon 04-14-2022 HSTROP 5.5 pg/mL Normal 4.0-76.1 [facility] Comment on above: Result Comment: CUT- OFF POINTS HAVE BEEN ESTABLISHED BASED ON THE FOURTH UNIVERSAL DEFINITIONS OF MYOCARDIAL INFARCTION. THE UPPER REFERENCE LIMIT (URL) OF TROPONIN, DEFINED THE 99TH PERCENTILE OF cTnI DISTRIBUTION IN A REFERENCE POPULATION, HAS BEEN CONFIRMED THE DECISION THRESHOLD FOR MO DIAGNOSIS. Performed By: #### H STROPN, BMP #### [facility] [address] [place] [address] Dr. Juan Castle Vital Signs Date Time Vital Sign Value Performing Clinician Amol rivera 02-25-2023 10:45-0500 Diastolic blood pressure 96 mm[Hg] My L[facility] 02-25-2023 10:45-0500 Mean blood pressure 111 mm[Hg] My Lue [facility] 02-25-2023 10:45-0500 Systolic blood pressure 140 mm[Hg] My Lue [facility] 02-25-2023 10:22-0500 Blood Pressure Location My Lue [facility] 02-25-2023 10:22-0500 Diastolic blood pressure 96 mm[Hg] My Lue [facility] 02-25-2023 10:22-0500 Heart rate 75 /min My Lue [facility] 02-25-2023 10:22-0500 Systolic blood pressure 144 mm[Hg] My Lue [facility] Encounters Encounter Date Encounter Type Care Provider Facility Start: 11-15-2024 ambulatory [employer] Vianey L Shane Facil ity: [facility] Start: 05-17-2024 End: 05-17-2024 ambulatory [employer] Vianey L Shane Facility:[facility] Start: 04-12-2023 End: 04-12-2023 Patient encounter procedure My M. Lue [facility] Start: 02-25-2023 End: 02-25-2023 Patient encounter procedure My M. Lue [facility] Start: 01-20-2023 End: 01-20-2023 Lab Drop off Vianey Lynn [facility] Start: 08-04-2022 ambulatory Sonia Weiss Fa cility:[facility] Start: 07-03-[address] ALISON HU . Facil ity:[facility] Start: 04-18-2022 End: 04-19-[address] ALISON HU . Facility:[facility] Start: 04-16-2022 End: 04-16-[address] ALISON HU . Facility:[facility] Start: 04-15-2022 End: 04-15-[address] ALISON HU . Facility:[facility] Start: 04-14-2022 End: 04-15-[address] ALISON HU . Facility:[facility] Start: 04-14-2022 End: 04-14-[address] ALISON HU . Facility: Procedures Date Procedure Procedure Detail Performing Clinician Start: 03-24-2023 Right hydrocelectomy Alvin Cloon Start: 03-29-1993 Herniated structure (morphologic abnormality) Vianey Lynn Immunizations Immunization Date Immunization Notes Care Provider Mandie werner 11-28-2015 tetanus toxoid, redu nery diphtheria toxoid, and acellular pertussis vaccine, adsorbed Vianey Lynn [facility] Payers Date Payer Category Payer Unknown [id number] 2022 Self-pay 1991 Unknown [id number] 2.16.84 [id number] 1991 Unknown [id number] 2.16.84 [id number] 1991 Unknown [id number] 2.16.84 [id number] 1991 Unknown [id number] 2.16.84 [id number] 1991 Unknown [id number] 2.16.84 [id number] 1991 Unknown [id number] 2.16.84 [id number] 1991 Unknown [id number] 2.16.8 [id number] 1991 Unknown [id number] 2.16.8 [id number] 1958 Medicaid [id number] 1958 Self-pay [id number] Social History Date Type Detail Facility Start: 01-20-2023 End: 04-12-2023 Tobacco smoking status Never smoked tobacco (finding) [facility] Sex Assigned At Male [facility] Functional Status Date Assessment Result Facility 04-12-2023 Functional Status N/A [facility] 02-25-2023 Functional Status N/A [facility] Hospital Discharge instructions 04-12-2023 Note Date & Type Note Facility 04-12-2023 Hospital Discharge instructions Patient Education 04/12/2023 11:45:28 Testicular Self-Exam, Tiri[employer]Gufm Testicular Self-Exam A self-exam of your testicles (testicular self-exam) is looking at and feeling your testicles for unusual lumps or swelling. Swelling, lumps, or pain can be caused by: Injuries. Irritation and swelling (inflammation). Infection. Extra fluids around the testicle (hydrocele). Twisted testicles (testicular torsion). Cancer of the testicle (testicular cancer). You may be at risk for this if you have: ?A testicle that has not descended (cryptorchidism). ?A history of cancer of the testicle. ?A family history of cancer of the testicle. General tips It is easiest to do a self-exam after a warm bath or shower. Testicles are harder to examine when you are cold. A normal testicle is egg-shaped and feels firm. It is smooth, and it is not tender. It is normal to feel a firm cord that feels like spaghetti at the back of your testicles. This is called the spermatic cord. How to do a self-exam of testicles 1.Stand and hold your penis away from your body. 2.Look at each testicle to check for changes in how it looks. Look for swelling or changes in size or shape. 3.Roll each testicle between your thumb and finger. Feel the whole testicle. Feel for: Lumps. Swelling. Discomfort. 4.Check for swelling or tender bumps in the groin area. Your groin is where your lower belly (abdomen) meets your upper thighs. Contact a doctor if: You find a bump or lump. This may be a small, hard bump that is the size of a pea. You find swelling. You find pain. You find soreness. You see or feel any other changes. Summary A self-exam of your testicles is looking at and feeling your testicles for lumps or swelling. You should check each of your testicles for lumps, swelling, or discomfort. You should check for swelling or tender bumps in the groin area. Your groin is where your lower belly (abdomen) meets your upper thighs. This information is not intended to replace advice given to you by your health care provider. Make sure you discuss any questions you have with your health care provider. Document Revised: 02/19/2020 Document Reviewed: 02/19/2020 [employer] Patient Education 2022 TabbedOut. 04/12/2023 11:45:27 Hydrocele, Adult Hydrocele, Adult A hydrocele is [...] Follow these instructions at home: Medicines Take fbot-zdb-iohvrzi and prescription medicines only as told by [...] provider. Document Revised: 10/30/2021 Document Reviewed: 10/30/2021 [employer] Patient Education 2022 [employer]. Follow Up Care 03/25/2023 12:35:48 With:Isaiah LEPE, MARY River, [facility] Address: When: only if needed [facility] Hospital Discharge instructions 02-25-2023 Note Date & Type [...] Follow these instructions at home: Medicines Take ibpt-dnp-fgzwfic and prescription medicines only as told by [...] provider. Document Revised: 10/30/2021 Document Reviewed: 10/30/2021 [employer] Patient Education 2022 TabbedOut. Follow Up Care 01/28/2023 15:11:24 With:Isaiah LPEE, MARY River, [facility] Address: When: Unknown [facility] Evaluation + Plan note 01-20-2023 Note Date & Type Note Facility 01-20-2023 Evaluation + Plan note Diagnostic Tests PendingChlamydia/Gonococcu s, HERB 01/20/23 [facility] Hospital course Narrative Note Date & Type Note Facility Hospital course Narrative No data available for this section [facility] Hospital Discharge instructions Note Date & Type Note Facility Hospital Discharge instructions No data available for this section [facility] Progress note Note Date & Type Note Facility Progress note No data available for this section [facility] Summary Purpose Family History No Family [...] content) DATE CREATED AUTHOR 07/04/2022 [facility] DATE CREATED AUTHOR AUTHOR'S ORGANIZ ATION 08/07/2022 [facility] DATE CREATED AUTHOR AUTHOR'S ORGANIZ ATION 05/19/2024 [facility] Patient Care team informatio n (unrecognized section and content) Personnel Name: Vianey Hernandez Address: Address: [address] [place] [address]- Personnel Name: Shaneab VILLALOBOS Vianey L Address: Address: [address] [place] [address]- Personnel Name: Shane WILFREDOLailadi Austin Address: Address: [address] [place] [address]- FOR RECORDS PERTAINING TO PATIENTS WHO ARE [...] BE BASED ON THE PRIMARY CLINICAL RECORDS. [facility] [facility]. provides no warranty or guarantee of the accuracy or completeness of information in this document.
--- NOTE | 2024-06-12 15:14 | ED.GENADUL1 ---
HPI HPI - General Adult General Chief complaint: Neck Pain/Injury Stated complaint: UPPER EXTREMITY/NECK PAIN Source: patient Mode of arrival: walk-in Related Data Home Medications ?Medication ?Instructions ?Recorded ?Confirmed bisoprolol 10 1 tab PO DAILY 03/18/23 06/12/24 mg-hydrochlorothiazide 6.25 mg tablet omeprazole 40 mg capsule,delayed 40 mg PO DAILY 03/18/23 06/12/24 release Allergies Allergy/AdvReac Type Severity Reaction Status Date / Time No Known Drug Allergies Allergy Verified 06/12/24 12:28 Opioid HPI Opioid Management Most Recent Opioid Data: Last Pain Scale 2 03/24/23 14:22 03/24/23 PFSH PFSH Medical History (Updated 03/18/23 @ 14:04 by Teresa Baron NP) Epistaxis ?R04.0 - Epistaxis (ICD-10) Anemia ?D64.9 - Anemia, unspecified (ICD-10) Migraine ?G43.909 - Migraine, unspecified, not intractable, without status migrainosus (ICD-10) GERD (gastroesophageal reflux disease) ?K21.9 - Gastro-esophageal reflux disease without esophagitis (ICD-10) Hypertension ?I10 - Essential (primary) hypertension (ICD-10) Surgical History (Updated 03/18/23 @ 14:04 by Teresa Baron NP) History of colonoscopy ?Z98.890 - Other specified postprocedural states (ICD-10) History of hernia repair ?Z98.890 - Other specified postprocedural states (ICD-10) ?Z87.19 - Personal history of other diseases of the digestive system (ICD-10) Family History (Updated 03/18/23 @ 14:04 by Teresa Baron NP) Other Family history of hypertension Social History (Updated 03/18/23 @ 14:02 by Teresa Baron NP) Within the past year, how often did you have a drink containing alcohol: monthly or less Smoking status: Current every day smoker What tobacco products do you use: cigarettes Do you use any of these nicotine containing products: vaping products Non-prescribed substance use: denies use 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 Highest level of school completed/degree received: high school graduate Little interest or pleasure in doing things: not at all Feeling down, depressed, or hopeless: not at all Exam Constitutional Vital Signs, click to edit/add: Last Vital Signs Temp 98.1 F 06/12/24 12:29 Pulse 70 06/12/24 12:29 Resp 16 06/12/24 12:29 BP 132/84 06/12/24 12:29 Pulse Ox 98 06/12/24 12:29 O2 Del Method Room Air 06/12/24 12:29 Course Vital Signs Vital signs: Vital Signs Temperature 98.1 F 06/12/24 12:29 Pulse Rate 70 06/12/24 12:29 Respiratory Rate 16 06/12/24 12:29 Blood Pressure 132/84 06/12/24 12:29 Pulse Oximetry 98 06/12/24 12:29 Oxygen Delivery Method Room Air 06/12/24 12:29 Temperature 98.1 F 06/12/24 12:29 Pulse Rate 70 06/12/24 12:29 Respiratory Rate 16 06/12/24 12:29 Blood Pressure 132/84 06/12/24 12:29 Pulse Oximetry 98 06/12/24 12:29 Oxygen Delivery Method Room Air 06/12/24 12:29 Medical Decision Making MDM Narrative Medical decision making narrative: X-ray ordered in triage. Patient LWBS. Discharge Plan Discharge Patient Disposition: Left Without Being Seen Discharge Date/Time: 06/12/24 14:07
== END 2024-06-12 14:07 | disposition left against medical advice (07) ==
PROVIDERS: Emergency Provider Student in an Organized Health Care Education/Training Program; PCP Nurse Practitioner
DX: Z53.21 Procedure and treatment not carried out due to patient leaving prior to being seen by health care provider (principal); M54.2 Cervicalgia; F17.210 Nicotine dependence, cigarettes, uncomplicated

== ENCOUNTER 2024-06-12 16:21 | Emergency (ER) | payer BC, SELFPAY ==
[2024-06-12 16:25] VITALS: BP 145/100; PULSE 66; TEMP 37.1; O2SAT 99; BMI 31.3
--- OUTSIDE RECORDS SUMMARY | 2024-06-12 16:29 | XMS_ITS | CCD ---
Author Organization [facility] Care Team Providers Care Weighter Name Role Phone FRITZ ., DR ALISON [...] Care Unavailable Vianey Lynn Primary Care Physician [phone] WILFREDO Lynn Attending Unavailable WILFREDO Lynn Attending Unavailable Medications Current Medications Medication Drug Class(es) Dates Sig (Normalized) Sig (Original) bisoprolol fumarate 10 mg / hydroCHLOROthiazide 6.25 mg oral tablet (3 sources) Thiazide Diuretic, beta-Adrenergic Maximino Start: 01-20-2023 take 1 tablet by mouth once daily bisoprolol-hydro chlorothiazide 10 mg-6.25 mg Tab 1 tab(s), Oral, Daily, 90 tab(s), Refill(s) 1, [facility]/pharmacy #[id number], 170.4, cm, 01/20/23 15:13:00 EDT, Height/Length Dosing, 89.7, kg, 01/20/23 15:13:00 EDT, Weight Dosing Start Date: 01/20/23 Status: Ordered omeprazole 40 mg delayed release oral capsule (3 sources) Proton Pump Inhibitor Start: 01-20-2023 take 1 capsule by mouth once daily omeprazole 40 mg Cap-DR 40 mg = 1 cap(s), Oral, Daily, # 90 cap(s), Refills(s) 0, Pharmacy: [facility]/pharmacy #[id number], 170.4, cm, 01/20/23 15:13:00 EDT, Height/Length [...] DAY, # 90 cap(s), Refills(s) 3, Pharmacy: [id number], 170, cm, 05/17/24 15:39:00 EST, Height/Length Dosing, [...] diphtheria/pertussis , acel/tetanus adult 11/28/2015 Given Normal [facility] Comment on above: Result Comment: Elec [...] PM) Normal Negative [facility] UA Auto SS Earl.plasma/Earl .RBC (Bld) [Mass ratio] 0-3 /HPF Normal [...] Desc Clean Catch (01/20/23 3:31 PM) Normal [facility] UA Auto SS Urobilinogen Qn (U) [id number] {Donna'U}/dL Normal 0.0 - 1.0 EU/dL FT UA Auto SS WBC Auto Ql (U) Negative (01/20/23 3:31 PM) Normal Negative [facility] UA Auto SS WBC LM.HPF (Urine sed) [#/Area] 0-5 /HPF Normal 0-5/HPF [facility] UA Auto SS PROTIMEon 04-18-2022 INR Coag (PPP) [Relative time] 0.94 {INR} Normal [facility] Comment on above: Performed By: #### P T, PTT #### [facility] [address] [place] [address] Dr. Juan Castle INR GUIDELINES SEE BELOW Normal [facility] Comment on above: Result Comment: SIERRA RED INR: 2.0 - 3.0 CONDITIONS NOT LISTED BELOW 2.5 - 3.5 FOR PROSTHETIC HEART VALVE REPLACEMENT 2.5 - 3.5 RECURRENT THROMBOSIS Performed By: #### P T, PTT #### [facility] [address] [place] [address] Dr. Juan Castle PT Coag (PPP) [Time] 10.0 s Normal 9.0-11.6 [facility] Comment on above: Performed By: #### P T, PTT #### [facility] [address] [place] [address] Dr. Juan Castle PTTon 04-18-2022 aPTT Coag (Bld) [Time] 28.0 s Normal 22.3-36.2 [facility] Comment on above: Performed By: #### P T, PTT #### [facility] [address] [place] [address] Dr. Juan Castle CBC AUTO DIFFon 04-16-2022 BASO # 0.1 103/ul Normal 0.0-0.1 [facility] Comment on above: Performed By: #### C BC #### [facility] [address] [place] [address] Dr. Juan Castle Basophils/100 WBC (Bld) 0.5 % Normal 0.2-2.0 [facility] Comment on above: Performed By: #### C BC #### [facility] [address] [place] [address] Dr. Juan Castle EO # 0.0 103/ul Normal 0.0-0.7 [facility] Comment on above: Performed By: #### C BC #### [facility] [address] [place] [address] Dr. Juan Castle Eosinophils/100 WBC (Bld) 0.2 % Critically low 0.9-7.0 [facility] Comment on above: Performed By: #### C BC #### [facility] [address] [place] [address] Dr. Juan Castle Erythrocyte distribution width (RBC) [Ratio] 12.8 % Normal 11.0-15.0 [facility] Comment on above: Performed By: #### C BC #### [facility] [address] [place] [address] Dr. Juan Castle Hematocrit (Bld) [Volume fraction] 33.2 % Critically low 42.0-54.0 [facility] Comment on above: Performed By: #### C BC #### [facility] [address] [place] [address] Dr. Juan Castle Hemoglobin (Bld) [Mass/Vol] 11.8 g/dL Critically low 14.0-18.0 [facility] Comment on above: Performed By: #### C BC #### [facility] [address] [place] [address] Dr. Juan Castle IG # 0.07 10e3/ul Critically high 0.00-0.03 [facility] Comment on above: Performed By: #### C BC #### [facility] [address] [place] [address] Dr. Juan Castle IG % 0.6 % Critically high 0.0-0.5 [facility] Comment on above: Performed By: #### C BC #### [facility] [address] [place] [address] Dr. Juan Castle LYMPH # 1.5 103/ul Normal 1.2-3.8 [facility] Comment on above: Performed By: #### C BC #### [facility] [address] [place] [address] Dr. Juan Castle Lymphocytes/100 WBC (Bld) 12.1 % Critically low 20.5-60.0 [facility] Comment on above: Performed By: #### C BC #### [facility] [address] [place] [address] Dr. Juan Castle MANUAL DIFF REQ NO Normal [facility] Comment on above: Performed By: #### C BC #### [facility] [address] [place] [address] Dr. Juan Castle MCH (RBC) [Entitic mass] 30.7 pg Normal 25.9-34.0 [facility] Comment on above: Performed By: #### C BC #### [facility] [address] [place] [address] Dr. Juan Castle MCHC (RBC) [Mass/Vol] 35.5 g/dL Critically high 29.9-35.2 [facility] Comment on above: Performed By: #### C BC #### [facility] [address] [address] [address] Juan Castle MCV (RBC) [Entitic vol] 86.5 fL Normal 80.0-94.0 [facility] Comment on above: Performed By: #### C BC #### [facility] [address] [address] [address] Juan Castle MONO # 0.6 103/ul Normal 0.3-0.8 [facility] Comment on above: Performed By: #### C BC #### [facility] [address] [address] [address] Juan Castle Monocytes/100 WBC (Bld) 5.2 % Normal 1.7-12.0 [facility] Comment on above: Performed By: #### C BC #### [facility] [address] [address] [address] Juan Castle NEUT # 10.1 103/ul Critically high 1.4-6.5 [facility] Comment on above: Performed By: #### C BC #### [facility] [address] [place] [address] Dr. Juan Castle Neutrophils/100 WBC (Bld) 81.4 % Critically high 43.0-75.0 [facility] Comment on above: Performed By: #### C BC #### [facility] [address] [address] [address] Juan Castle Platelet mean volume (Bld) [Entitic vol] 8.5 fL Critically low 9.5-13.5 [facility] Comment on above: Performed By: #### C BC #### [facility] [address] [place] [address] Dr. Juan Castle PLT 247 103/ul Normal 150-450 [facility] Comment on above: Performed By: #### C BC #### [facility] [address] [place] [address] Dr. Juan Castle RBC 3.84 106/ul Critically low 4.70-6.10 [facility] Comment on above: Performed By: #### C BC #### [facility] [address] [address] [address] Juan Castle WBC 12.4 103/ul Critically high 4.0-11.0 [facility] Comment on above: Performed By: #### C BC #### [facility] [address] [address] [address] Juan Castle LACTATE/LACTIC ACIDon 2022 Lactate [Moles/Vol] 1.1 mmol/L Normal 0.4-1.9 [facility] Comment on above: Performed By: #### L ACT #### [facility] [address] [address] [address] Juan Castle PROF 14(COMP METB)on 023 Albumin [Mass/Vol] 3.9 g/dL Normal 3.4-5.0 [facility] Comment on above: Performed By: #### C MP #### [facility] [address] [address] [address] Juan Castle Albumin/Globulin [Mass ratio] 1.1 {ratio} Normal [facility] Comment on above: Performed By: #### C MP #### [facility] [address] [address] [address] Juan Castle ALP [Catalytic activity/Vol] 60 U/L Normal 46-116 [facility] Comment on above: Performed By: #### C MP #### [facility] [address] [address] [address] Juan Castle ALT [Catalytic activity/Vol] 24 U/L Normal 16-63 [facility] Comment on above: Performed By: #### C MP #### [facility] [address] [address] [address] Juan Castle Anion gap [Moles/Vol] 11.2 mmol/L Normal [facility] Comment on above: Performed By: #### C MP #### [facility] [address] [address] [address] Juan Castle AST [Catalytic activity/Vol] 14 U/L Critically low 15-37 [facility] Comment on above: Performed By: #### C MP #### [facility] [address] [address] [address] Juan Castle Bilirubin [Mass/Vol] 0.5 mg/dL Normal 0.2-1.0 [facility] Comment on above: Performed By: #### C MP #### [facility] [address] [address] [address] Juan Castle Calcium [Mass/Vol] 9.5 mg/dL Normal 8.5-10.1 [facility] Comment on above: Performed By: #### C MP #### [facility] [address] [address] [address] Juan Castle Chloride [Moles/Vol] 102 mmol/L Normal 98-107 [facility] Comment on above: Performed By: #### C MP #### [facility] [address] [address] [address] Juan Castle CO2 [Moles/Vol] 30.3 mmol/L Normal 21.0-32.0 [facility] Comment on above: Performed By: #### C MP #### [facility] [address] [address] [address] Juan Castle Creatinine [Mass/Vol] 0.88 mg/dL Normal 0.70-1.30 [facility] Comment on above: Performed By: #### C MP #### [facility] [address] [address] [address] Juan Castle EGFR-AF SOUTH AFRICAN >60 Normal >=60 [facility] Comment on above: Performed By: #### C MP #### [facility] [address] [address] [address] Juan Castle EGFR-NON AF SOUTH AFRICAN >60 Normal >=60 [facility] Comment on above: Performed By: #### C MP #### [facility] [address] [place] [address] Dr. Juan Castle Globulin (S) [Mass/Vol] 3.4 g/dL Normal [facility] Comment on above: Performed By: #### C MP #### [facility] [address] [address] [address] Juan Castle Glucose [Mass/Vol] 102 mg/dL Normal 74-106 [facility] Comment on above: Performed By: #### C MP #### [facility] [address] [address] [address] Juan Castle Potassium [Moles/Vol] 3.5 mmol/L Normal 3.5-5.1 [facility] Comment on above: Performed By: #### C MP #### [facility] [address] [address] [address] Juan Castle Protein [Mass/Vol] 7.3 g/dL Normal 6.4-8.2 [facility] Comment on above: Performed By: #### C MP #### [facility] [address] [place] [address] Dr. Juan Castle Sodium [Moles/Vol] 140 mmol/L Normal 136-145 [facility] Comment on above: Performed By: #### C MP #### [facility] [address] [address] [address] Juan Castle Urea nitrogen [Mass/Vol] 26.0 mg/dL Critically high 7.0-18.0 [facility] Comment on above: Performed By: #### C MP #### [facility] [address] [place] [address] Dr. Jaun Castle Urea nitrogen/Creatinine [Mass ratio] 29.5 mg/mg Normal [facility] Comment on above: Performed By: #### C MP #### [facility] [address] [address] [address] Juan Castle TYPE AND SCREENon 04-16-2022 TYPE AND SCREEN Negative Normal [facility] Comment on above: Performed By: #### T NS #### [facility] [address] [address] [address] Jaun Castle CBC AUTO DIFFon 04-14-2022 BASO # 0.1 103/ul Normal 0.0-0.1 [facility] Comment on above: Performed By: #### C BC #### [facility] [address] [address] [address] Juan Castle Basophils/100 WBC (Bld) 0.7 % Normal 0.2-2.0 [facility] Comment on above: Performed By: #### C BC #### [facility] [address] [address] [address] Juan Castle EO # 0.2 103/ul Normal 0.0-0.7 [facility] Comment on above: Performed By: #### C BC #### [facility] [address] [address] [address] Juan Castle Eosinophils/100 WBC (Bld) 1.7 % Normal 0.9-7.0 [facility] Comment on above: Performed By: #### C BC #### [facility] [address] [place] [address] Dr. Juan Castle Erythrocyte distribution width (RBC) [Ratio] 13.1 % Normal 11.0-15.0 [facility] Comment on above: Performed By: #### C BC #### [facility] [address] [place] [address] Dr. Juan Castle Hematocrit (Bld) [Volume fraction] 42.0 % Normal 42.0-54.0 [facility] Comment on above: Performed By: #### C BC #### [facility] [address] [place] [address] Dr. Juan Castle Hemoglobin (Bld) [Mass/Vol] 14.6 g/dL Normal 14.0-18.0 [facility] Comment on above: Performed By: #### C BC #### [facility] [address] [place] [address] Dr. Juan Castle IG # 0.06 10e3/ul Critically high 0.00-0.03 [facility] Comment on above: Performed By: #### C BC #### [facility] [address] [address] [address] Juan Castle IG % 0.7 % Critically high 0.0-0.5 [facility] Comment on above: Performed By: #### C BC #### [facility] [address] [place] [address] Dr. Juan Castle LYMPH # 2.6 103/ul Normal 1.2-3.8 [facility] Comment on above: Performed By: #### C BC #### [facility] [address] [place] [address] Dr. Juan Castle Lymphocytes/100 WBC (Bld) 29.6 % Normal 20.5-60.0 [facility] Comment on above: Performed By: #### C BC #### [facility] [address] [place] [address] Dr. Juan Castle MANUAL DIFF REQ NO Normal [facility] Comment on above: Performed By: #### C BC #### [facility] [address] [place] [address] Dr. Juan Castle MCH (RBC) [Entitic mass] 30.2 pg Normal 25.9-34.0 [facility] Comment on above: Performed By: #### C BC #### [facility] [address] [place] [address] Dr. Juan Castle MCHC (RBC) [Mass/Vol] 34.8 g/dL Normal 29.9-35.2 [facility] Comment on above: Performed By: #### C BC #### [facility] [address] [place] [address] Dr. Juan Castle MCV (RBC) [Entitic vol] 87.0 fL Normal 80.0-94.0 [facility] Comment on above: Performed By: #### C BC #### [facility] [address] [place] [address] Dr. Juan Castle MONO # 0.6 103/ul Normal 0.3-0.8 [facility] Comment on above: Performed By: #### C BC #### [facility] [address] [place] [address] Dr. Juan Castle Monocytes/100 WBC (Bld) 6.8 % Normal 1.7-12.0 [facility] Comment on above: Performed By: #### C BC #### [facility] [address] [place] [address] Dr. Juan Castle NEUT # 5.4 103/ul Normal 1.4-6.5 [facility] Comment on above: Performed By: #### C BC #### [facility] [address] [place] [address] Dr. Juan Castle Neutrophils/100 WBC (Bld) 60.5 % Normal 43.0-75.0 [facility] Comment on above: Performed By: #### C BC #### [facility] [address] [place] [address] Dr. Juan Castle Platelet mean volume (Bld) [Entitic vol] 9.2 fL Critically low 9.5-13.5 [facility] Comment on above: Performed By: #### C BC #### [facility] [address] [place] [address] Dr. Juan Castle PLT 217 103/ul Normal 150-450 [facility] Comment on above: Performed By: #### C BC #### [facility] [address] [place] [address] Dr. Juan Castle RBC 4.83 106/ul Normal 4.70-6.10 [facility] Comment on above: Performed By: #### C BC #### [facility] [address] [place] [address] Dr. Juan Castle WBC 8.9 103/ul Normal 4.0-11.0 [facility] Comment on above: Performed By: #### C BC #### [facility] [address] [place] [address] HEAD WO CONon [...] PADMINI HARVEY Date: 2022-04-14 17:32 Normal [facility] PROF CHEM 8 (BAS METB)on Anion gap [Moles/Vol] 11.1 mmol/L Normal [facility] Comment on above: Performed By: #### H STROPN, BMP #### [facility] [address] [place] [address] Dr. Juan Castle Calcium [Mass/Vol] 9.4 mg/dL Normal 8.5-10.1 [facility] Comment on above: Performed By: #### H STROPN, BMP #### [facility] [address] [place] [address] Dr. Juan Castle Chloride [Moles/Vol] 100 mmol/L Normal 98-107 [facility] Comment on above: Performed By: #### H STROPN, BMP #### [facility] [address] [place] [address] Dr. Juan Castle CO2 [Moles/Vol] 31.4 mmol/L Normal 21.0-32.0 [facility] Comment on above: Performed By: #### H STROPN, BMP #### [facility] [address] [place] [address] Dr. Juan Castle Creatinine [Mass/Vol] 0.89 mg/dL Normal 0.70-1.30 [facility] Comment on above: Performed By: #### H STROPN, BMP #### [facility] [address] [place] [address] Dr. Juan Castle EGFR-AF SOUTH AFRICAN >60 Normal >=60 [facility] Comment on above: Performed By: #### H STROPN, BMP #### [facility] [address] [place] [address] Dr. Juan Castle EGFR-NON AF SOUTH AFRICAN >60 Normal >=60 [facility] Comment on above: Performed By: #### H STROPN, BMP #### [facility] [address] [address] [address] Juan Castle Glucose [Mass/Vol] 101 mg/dL Normal 74-106 [facility] Comment on above: Performed By: #### H STROPN, BMP #### [facility] [address] [address] [address] Juan Castle Potassium [Moles/Vol] 4.5 mmol/L Normal 3.5-5.1 [facility] Comment on above: Performed By: #### H STROPN, BMP #### [facility] [address] [address] [address] Juan Castle Sodium [Moles/Vol] 138 mmol/L Normal 136-145 [facility] Comment on above: Performed By: #### H STROPN, BMP #### [facility] [address] [place] [address] Dr. Juan Castle Urea nitrogen [Mass/Vol] 12.0 mg/dL Normal 7.0-18.0 [facility] Comment on above: Performed By: #### H STROPN, BMP #### [facility] [address] [address] [address] Juan Castle Urea nitrogen/Creatinine [Mass ratio] 13.5 mg/mg Normal [facility] Comment on above: Performed By: #### H STROPN, BMP #### [facility] [address] [place] [address] Dr. Juan Castle TROPONIN, HIGH SENSITIVITYon 04-14-2022 HSTROP 5.5 pg/mL Normal 4.0-76.1 [facility] Comment on above: Result Comment: CUT- OFF POINTS HAVE BEEN ESTABLISHED BASED ON THE FOURTH UNIVERSAL DEFINITIONS OF MYOCARDIAL INFARCTION. THE UPPER REFERENCE LIMIT (URL) OF TROPONIN, DEFINED THE 99TH PERCENTILE OF cTnI DISTRIBUTION IN A REFERENCE POPULATION, HAS BEEN CONFIRMED THE DECISION THRESHOLD FOR DE DIAGNOSIS. Performed By: #### H STROPN, BMP #### [facility] [address] [place] [address] Dr. Juan Castle Vital Signs Date Time Vital Sign Value Performing Clinician Amol rivera 02-25-2023 10:45-0500 Diastolic blood pressure 96 mm[Hg] My [facility] 02-25-2023 10:45-0500 Mean blood pressure 111 mm[Hg] My [facility] 02-25-2023 10:45-0500 Systolic blood pressure 140 mm[Hg] My [facility]ue [facility] 02-25-2023 10:22-0500 Blood Pressure Location My L[facility] 02-25-2023 10:22-0500 Diastolic blood pressure 96 mm[Hg] My [facility] 02-25-2023 10:22-0500 Heart rate 75 /min My [facility] 02-25-2023 10:22-0500 Systolic blood pressure 144 mm[Hg] My Lue [facility] Encounters Encounter Date Encounter Type Care Provider Facility Start: 11-15-2024 ambulatory UROLOGIST Vianey L Shane Facil ity: [facility] Start: 05-17-2024 End: 05-17-2024 ambulatory UROLOGIST Vianey L Shane Facility:[facility] Start: 04-12-2023 End: 04-12-2023 Patient encounter procedure My [facility] Start: 02-25-2023 End: 02-25-2023 Patient encounter procedure [facility] Start: 01-20-2023 End: 01-20-2023 Lab Drop off Vianey Lynn [facility] Start: 08-04-2022 ambulatory Sonia [facility] cility:[facility] Start: 07-03-[address] ALISON HU . [...] Performing Clinician Start: 03-24-2023 Right hydrocelectomy Alvin Colon Start: 03-29-1993 Herniated structure (morphologic abnormality) Vianey Lynn Immunizations Immunization Date Immunization Notes Care Provider Mandie werner 11-28-2015 tetanus toxoid, redu nery diphtheria toxoid, and acellular pertussis vaccine, adsorbed Vianey Lynn [facility] Payers Date Payer Category Payer Unknown [id number] 2022 Self-pay 1990 Unknown [id number] 2.16.84 [id number] 1991 Unknown [id number] 2.16.84 [id number] 1991 Unknown [id number] 2.16.84 [id number] 1991 Unknown [id number] 2.16.84 [id number] 1991 Unknown [id number] 2.16.84 [id number] 1991 Unknown [id number] 2.16.84 [id number] 1991 Unknown [id number] 2.16.8 [id number] 1991 Unknown [id number] 2.16.8 [id number] 1958 Medicaid [id number] 1958 Self-pay [id number] Social History Date Type Detail Facility Start: 01-20-2023 End: 04-12-2023 Tobacco smoking status Never smoked tobacco (finding) [facility] Sex Assigned At Male [facility] Functional Status Date Assessment Result Facility 04-12-2023 Functional Status N/A [facility] 02-25-2023 Functional Status N/A [facility] Hospital Discharge instructions 04-12-2023 Note Date & Type Note Facility 04-12-2023 Hospital Discharge instructions Patient Education 04/12/2023 11:45:28 Testicular Self-Exam, [id number] Testicular Self-Exam A self-exam of your testicles [...] provider. Document Revised: 02/19/2020 Document Reviewed: 02/19/2020 [employer] Patient Education 2022 [employer]. 04/12/2023 11:45:27 Hydrocele, Adult Hydrocele, Adult A [...] Follow these instructions at home: Medicines Take [id number] and prescription medicines only as told by [...] provider. Document Revised: 10/30/2021 Document Reviewed: 10/30/2021 [employer] Patient Education 2022 [employer]. Follow Up Care 03/25/2023 12:35:48 With:Isaiah LEPE, MARY [place], U[facility] Address: When: only if needed [facility] Hospital Discharge instructions 02-25-2023 Note Date & [...] Follow these instructions at home: Medicines Take bpcv-[id number] and prescription medicines only as told by [...] provider. Document Revised: 10/30/2021 Document Reviewed: 10/30/2021 [employer] Patient Education 2022 [employer]. Follow Up Care 01/28/2023 15:11:24 With:Isaiah LEPE, MARY [place], U[facility] Address: When: Unknown [facility] Evaluation + Plan note 01-20-2023 Note Date & Type Note Facility 01-20-2023 Evaluation + Plan note Diagnostic Tests PendingChlamydia/Gonococcu s, HERB 01/20/23 [facility] Hospital course Narrative Note Date & Type Note Facility Hospital course Narrative No data available for this section [facility] Hospital Discharge instructions Note Date & Type Note Facility Hospital Discharge instructions No data available for this section [facility] Progress note Note Date & Type Note Facility Progress note No data available for this section [facility] Summary Purpose Family History No Family History [...] CREATED AUTHOR AUTHOR'S ORGANIZ ATION 08/07/2022 [facility] DATE CREATED AUTHOR AUTHOR'S ORGANIZ ATION 05/19/2024 [facility] Patient Care team informatio n (unrecognized section and content) Personnel Name: Vianey Hernandez Address: Address: [address] [place] [address]- Personnel Name: Shaneab VILLALOBOS Vianey L Address: Address: [address] [place] [address]- Personnel Name: Shane WILFREDOLailadi Austin Address: Address: [address] [place] [address]- FOR RECORDS PERTAINING TO PATIENTS WHO ARE [...] BE BASED ON THE PRIMARY CLINICAL RECORDS. [facility]. provides no warranty or guarantee of the accuracy or completeness of information in this document.
--- NOTE | 2024-06-12 16:49 | ED.GENADUL1 ---
HPI HPI - General Adult General Chief complaint: Neck Pain/Injury Stated complaint: neck pain Time Seen by Provider: 06/12/24 16:22 Source: patient Mode of arrival: walk-in History of Present Illness HPI narrative: 34-year-old male to the emergency department with chief complaint of some left-sided neck pain. He has had this in the past before. He reports he noticed it when he woke up this morning. It made it hard for him to turn his head. He reports that he could not go to work and needs a work note. He denies any numbness, weakness, tingling. No specific injury. No fever, sweats, chills. No headache or vision changes. Related Data Home Medications ?Medication ?Instructions ?Recorded ?Confirmed bisoprolol 10 1 tab PO DAILY 03/18/23 06/12/24 mg-hydrochlorothiazide 6.25 mg tablet omeprazole 40 mg capsule,delayed 40 mg PO DAILY 03/18/23 06/12/24 release Previous Rx's ?Medication ?Instructions ?Recorded cyclobenzaprine 10 mg tablet 10 mg PO BID PRN muscle spasm #10 06/12/24 tabs naproxen 500 mg tablet 500 mg PO BID PRN pain #14 tabs 06/12/24 Allergies Allergy/AdvReac Type Severity Reaction Status Date / Time No Known Drug Allergies Allergy Verified 06/12/24 12:28 Opioid HPI Opioid Management Most Recent Opioid Data: Last Pain Scale 2 03/24/23 14:22 03/24/23 Review of Systems ROS Status of ROS 10 or more systems reviewed and unremarkable except as noted in history and below PFSH [facility] Medical History (Updated 06/12/24 @ 16:38 by Des Hairston MD) Epistaxis ?R04.0 - Epistaxis (ICD-10) Anemia ?D64.9 - Anemia, unspecified (ICD-10) Migraine ?G43.909 - Migraine, unspecified, not intractable, without status migrainosus (ICD-10) GERD (gastroesophageal reflux disease) ?K21.9 - Gastro-esophageal reflux disease without esophagitis (ICD-10) Hypertension ?I10 - Essential (primary) hypertension (ICD-10) Surgical History (Updated 03/18/23 @ 14:04 by Teresa Baron NP) History of colonoscopy ?Z98.890 - Other specified postprocedural states (ICD-10) History of hernia repair ?Z98.890 - Other specified postprocedural states (ICD-10) ?Z87.19 - Personal history of other diseases of the digestive system (ICD-10) Family History (Updated 03/18/23 @ 14:04 by Teresa Baron NP) Other Family history of hypertension Social History (Updated 03/18/23 @ 14:02 by Teresa Baron NP) Within the past year, how often did you have a drink containing alcohol: monthly or less Smoking status: Current every day smoker What tobacco products do you use: cigarettes Do you use any of these nicotine containing products: vaping products Non-prescribed substance use: denies use 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 GENERAL: Well developed, well appearing adult in no acute distress. NEURO: Alert and oriented. Moves all extremities. Face is symmetric and expressive. EYES: PERRL. No scleral icterus or conjunctival injection. No discharge. HENT: Normocephalic, atraumatic. Hearing is grossly intact. Nares grossly patent and without discharge. Mucous membranes moist. Increased tone in the left sternocleidomastoid muscle. NECK: No JVD. Patient moves neck without restriction. EXTREMITIES: Symmetric muscle bulk. No joint swelling. No clubbing, cyanosis, or deformity. SKIN: Warm and dry. Normal turgor. No rash or lesions appreciated. PSYCH: Mood, affect, and interaction is appropriate to the setting. Constitutional Vital Signs, click to edit/add: Last Vital Signs Temp 98.7 F 06/12/24 16:25 Pulse 66 06/12/24 16:25 Resp 16 06/12/24 16:25 BP 145/100 H 06/12/24 16:25 Pulse Ox 99 06/12/24 16:25 O2 Del Method Room Air 06/12/24 16:25 Course Vital Signs Vital signs: Vital Signs Temperature 98.7 F 06/12/24 16:25 Pulse Rate 66 06/12/24 16:25 Respiratory Rate 16 06/12/24 16:25 Blood Pressure 145/100 H 06/12/24 16:25 Pulse Oximetry 99 06/12/24 16:25 Oxygen Delivery Method Room Air 06/12/24 16:25 Temperature 98.7 F 06/12/24 16:25 Pulse Rate 66 06/12/24 16:25 Respiratory Rate 16 06/12/24 16:25 Blood Pressure 145/100 H 06/12/24 16:25 Pulse Oximetry 99 06/12/24 16:25 Oxygen Delivery Method Room Air 06/12/24 16:25 Medical Decision Making MDM Narrative Medical decision making narrative: 34-year-old male to the emergency department left-sided neck pain. Clinical exam is consistent with left-sided Mild torticollis. He is neurologically intact. He is otherwise asymptomatic. He is requesting a work note. Work note given. Naproxen and Flexeril were prescribed. Return precautions were discussed. All questions were answered. The patient was discharged home Medical Records Medical records reviewed: Yes I reviewed the patient's medical records Discharge Plan Discharge Chief Complaint: Neck Pain/Injury Clinical Impression: Strain of neck muscle Patient Disposition: Home, Self-Care Time of Disposition Decision: 16:38 Condition: Good Mode of Transportation: Private Vehicle Prescriptions / Home Meds: New cyclobenzaprine 10 mg tablet 10 mg PO BID PRN (Reason: muscle spasm) Qty: 10 0RF naproxen 500 mg tablet 500 mg PO BID PRN (Reason: pain) Qty: 14 0RF No Action omeprazole 40 mg capsule,delayed release(DR/EC) 40 mg PO DAILY bisoprolol-hydrochlorothiazide 10-6.25 mg tablet 1 tab PO DAILY Print Language: Yakut Instructions: Cervical Strain (ED) Additional Instructions: Call the office of your primary care doctor to arrange for follow-up within the above-stated timeframe. Your ED visit was focused on your acute issue and does not replace primary care. You should review your labs, imaging, and diagnoses from this ED visit with your primary care physician. There may be non-emergent/ incidental findings that need further evaluation. You should review your vital signs including blood pressure with your PCP. If you were prescribed medications you should discuss possible side-effects and drug interactions with your pharmacist. Call 911 or go to the nearest Emergency Department if you develop any new or worsening symptoms. Referrals: JAQUI GARVIN [Primary Care Provider] - 1 week Discharge Date/Time: 06/12/24 16:44
== END 2024-06-12 16:44 | disposition home or self-care (01) ==
PROVIDERS: Emergency Provider Student in an Organized Health Care Education/Training Program; PCP Nurse Practitioner
DX: S16.1XXA Strain of muscle, fascia and tendon at neck level, initial encounter (principal); X58.XXXA Exposure to other specified factors, initial encounter; F17.210 Nicotine dependence, cigarettes, uncomplicated; F17.290 Nicotine dependence, other tobacco product, uncomplicated
CPT/HCPCS: 99283